=== PATIENT | female | born 1965 | race Caucasian/White ===

== ENCOUNTER 2016-09-22 17:19 | Emergency (ER) | payer OTHER ==
[2016-09-22 17:23] VITALS: BP 149/85; PULSE 114; TEMP 98.4; BMI 52.0
[2016-09-22 20:16] LABS: URINE APPEARANCE TURBID; URINE BILIRUBIN NEGATIVE (NEGATIVE); URINE COLOR YELLOW; URINE GLUCOSE (UA) 1+ (NEGATIVE); URINE KETONE NEGATIVE (NEGATIVE); URINE NITRITE NEGATIVE (NEGATIVE); URINE UROBILINOGEN NEGATIVE E.U./dl (0.2-1.0)
[2016-09-22 20:19] LABS: BASOPHIL 0.4 % (0-2.0); EOSINOPHIL 0.9 % (0-4.5); MCH 29.6 pg (25.7-33.7); MCHC 32.9 g/dl (32.0-36.0); MEAN CELL VOLUME 89.9 fl (80-96); MEAN PLT VOLUME 7.5 fl (7.5-11.1); NEUTROPHILS 73.6 % (42.8-82.8); PLATELET COUNT 253 K/MM3 (134-434); RDW 13.4 % (11.6-15.6); URINE BLOOD 2+ (NEGATIVE); URINE LEUK ESTERASE 3+ (NEGATIVE); URINE PROTEIN 2+ (NEGATIVE); WHITE BLOOD COUNT 11.3 K/mm3 (4.0-10.0)
[2016-09-22 20:21] LABS: URINE MUCUS FEW; URINE RBC 123 /hpf (0-3); URINE WBC 746 /hpf (3-5); YEAST FEW
[2016-09-22 20:40] LABS: ALBUMIN 3.1 g/dl (3.4-5.0); BILIRUBIN,TOTAL 0.4 mg/dL (0.2-1.0); CALCIUM 8.7 mg/dL (8.5-10.1); COCKROFT - GAULT 91.1285; CREATININE 1.6 mg/dL (0.55-1.02); TOT PROT 7.1 g/dl (6.4-8.2)
--- NOTE | 2016-09-22 21:59 | PDOC ---
History of Present Illness - General Chief Complaint: Pain Stated Complaint: STOMACH ACHE/BACK PAIN/CHILLS Time Seen by Provider: 09/22/16 19:19 History Source: Patient Exam Limitations: No Limitations - History of Present Illness Travel History: No Initial Comments: 09/22/16 21:56 51yo Female patient presents to ED c/o abd and back pain w/ chills that began 1 hour ago. Patient states she is currently being treated by her urologist for blood in urine. She was to have a CT-Scan w/ contrast this past week, but BUN/ Creat elevated, so her urologist cancelled study. Patient verbalize she has a Cystoscopy schedule for Friday. Patient denies any other complaints at this time. Spoke with Dr. Stubbs (Urology) today at [phone], who requested patient have a CT-Scan w/o contrast and call him back. Timing/Duration: reports: getting worse Quality: reports: moderate Abdominal Pain Onset Location: reports: generalized abdomen Pain Radiation: reports: back Activities at Onset: reports: none Treatment Prior to Arrive: worse with: analgesics, antacids, cold pack, heat, laxative, enema, other Aggravating Factors: worse with: None, Defecation, Eating, Emotional upset, Exertion, [place], Movement, Voiding, Change in position Alleviating Factors: worse with: None, Belching, Shallow Breathing, Defecation, Eating, Holding Breath, Passing Gas, Change in Position, Rest, Voiding, Vomiting Past History - Travel Traveled outside of the country in the last 30 days: No Close contact w/someone who was outside of country & ill: No - Past Medical History Allergies/Adverse Reactions: Allergies Allergy/AdvReac Type Severity Reaction Status Date / Time amoxicillin Allergy Rash Verified 09/22/16 17:24 erythromycin base Allergy Rash Verified 09/22/16 17:24 levofloxacin [From Levaquin] Allergy Hives Verified 09/22/16 17:25 Home Medications: Ambulatory Orders Cephalexin Monohydrate [Keflex -] 500 mg PO BID #20 capsule 09/22/16 Glipizide Xl [Glucotrol Xl -] 5 mg PO DAILY 09/22/16 Hydrocodone/Acetaminophen [Vicodin 5-300 mg Tablet] 1 each PO Q6H PRN 09/22/16 Insulin Aspart [Novolog] 100 unit SQ BID 09/22/16 Insulin Glargine,Hum.rec.anlog [Dorinda Mccollum] 72 unit SQ DAILY 09/22/16 Liraglutide [Victoza -] 1.8 mg SQ DAILY@0700 09/22/16 Losartan Potassium [Cozaar] 100 mg PO DAILY 09/22/16 Diabetes: Yes Kidney Stones: Yes Other medical history: SPINAL STENOSIS - Psycho/Social/Smoking Cessation Hx Anxiety: No Suicidal Ideation: No Smoking History: Never smoked Hx Alcohol Use: No Drug/Substance Use Hx: No Substance Use Type: None Abd/GI Specific PMHX - Complaint Specific PMHX Colitis: No Diverticulitis: No Gall Bladder Disease: No GERD: No Hepatitis: No Irritable Bowel Synd (IBS): No Pancreatitis: No GI Ulcer Disease: No Review of Systems - Review of Systems Able to Perform ROS?: Yes Is the patient limited Estonian proficient: No Constitutional: Yes: Chills. No: Fever Respiratory: No: Orthopnea, Shortness of Breath, Stridor, Wheezing, Hemoptysis Cardiac (ROS): No: Chest Pain, Lightheadedness, Palpitations, Syncope, Chest Tightness ABD/GI: Yes: Other (Generalized Abdominal Pain). No: Diarrhea, Nausea, Poor Appetite, Poor Fluid Intake, Rectal Bleeding, Vomiting : Yes: Burning, Dysuria. No: Discharge, Frequency, Flank Pain, Pain, Urgency Musculoskeletal: Yes: Back Pain Integumentary: No: Dryness, Erythema, Rash Neurological: No: Headache, Seizure, Tingling, Ataxia, Dizziness All Other Systems: Reviewed and Negative *Physical Exam - Vital Signs Last Vital Signs Temp Pulse Resp BP Pulse Ox 98.4 F 114 H 20 149/85 98 09/22/16 17:20 09/22/16 17:20 09/22/16 17:20 09/22/16 17:20 09/22/16 17:20 - Physical Exam General Appearance: Yes: Nourished, Appropriately Dressed. No: Apparent Distress, Mild Distress, Moderate Distress, Severe Distress Respiratory/Chest: positive: Lungs Clear, Normal Breath Sounds. negative: Respiratory Distress, Accessory Muscle Use, Labored Respiration, Rapid RR Cardiovascular: positive: Regular Rhythm, Regular Rate Gastrointestinal/Abdominal: positive: Normal Bowel Sounds, Soft, Distended ( Large Abd), Tenderness (Generalized Abdominal Pain). negative: Guarding, Rebound Musculoskeletal: positive: Normal Inspection. negative: CVA Tenderness Extremity: positive: Normal Capillary Refill, Normal Inspection, Normal Range of Motion Integumentary: positive: Normal Color, Dry, Warm Neurologic: positive: rn stars II-XII NML intact, Fully Oriented, Alert, Normal Mood/ Affect, Normal Response, Motor Strength 10/18 ED Treatment Course - LABORATORY CBC & Chemistry Diagram: 09/22/16 19:57 09/22/16 19:57 - ADDITIONAL ORDERS Additional order review: Laboratory Results 09/22/16 09/22/16 19:57 19:57 Sodium 136 Potassium 4.5 Chloride 102 Carbon Dioxide 22 Anion Gap 12 BUN 24 H Creatinine 1.6 H Creat Clearance w eGFR 33.72 Random Glucose 191 H Calcium 8.7 Total Bilirubin 0.4 AST 25 ALT 35 Alkaline Phosphatase 82 Total Protein 7.1 Albumin 3.1 L Urine Color Yellow Urine Appearance Turbid Urine pH 5.0 Ur Specific Freedom 1.020 Urine Protein 2+ H Urine Glucose (UA) 1+ H Urine Ketones Negative Urine Blood 2+ H Urine Nitrite Negative Urine Bilirubin Negative Urine Urobilinogen Negative Ur Leukocyte Esterase 3+ H Urine RBC 123 Urine WBC 746 Ur Epithelial Cells Many Urine Mucus Few Urine Yeast Few 09/22/16 19:57 RBC 4.46 MCV 89.9 MCHC 32.9 RDW 13.4 MPV 7.5 Neutrophils % 73.6 Lymphocytes % 17.3 Monocytes % 7.8 Eosinophils % 0.9 Basophils % 0.4 - RADIOLOGY Radiology Studies Ordered: Category Date Time Status ABDOMEN & PELVIS CT W/O CONTR [CT] Stat CT Scan 09/22/16 19:52 Taken *DC/Admit/Observation/Transfer Diagnosis at time of Disposition: UTI (urinary tract infection) Qualifiers: Urinary tract infection type: acute cystitis Hematuria presence: without hematuria Qualified Code(s): N30.00 - Acute cystitis without hematuria - Discharge Dispostion Disposition: HOME Condition at time of disposition: Stable Admit: No - Prescriptions Prescriptions: Cephalexin Monohydrate [Keflex -] 500 mg PO BID #20 capsule - Patient Instructions Printed Discharge Instructions: DI for Urinary Tract Infection (UTI) Additional Instructions: FOLLOW UP WITH DR. FARR AND DR. STUBBS. CALL TO SCHEDULE APPOINTMENT. TAKE MEDICATIONS PRESCRIBED. RETURN IF ANY CONCERNS FOR FURTHER EVALUATION. Print Language: LITHUANIAN
[2016-09-22] MEDS ORDERED: PHENAZOPYRIDINE HCL 100 MG TABLET (FP) PO ONE (22:56)
[2016-09-22] MEDS ORDERED: CEPHALEXIN MONOHYDRATE 500 MG CAPSULE (UD) PO ONE ×2 (22:56→22:57)
[2016-09-22] MEDS ORDERED: PHENAZOPYRIDINE HCL 100 MG TABLET (FP) ONE (22:59)
[2016-09-22] MEDS ORDERED: CEPHALEXIN MONOHYDRATE 250 MG CAPSULE (FP) ONE (23:00)
== END 2016-09-22 23:09 | disposition home or self-care (01) ==
LOC: JER 17:19
DX: N30.00 Acute cystitis without hematuria (principal)
CPT/HCPCS: 36415; 74176-TC; 80053; 81003; 81015; 85025; 99283-25

== ENCOUNTER 2017-01-13 05:10 | Day surgery (SDC) | payer OTHER ==
[2017-01-03 11:53] VITALS: BMI 52.4
[2017-01-13] MEDS ORDERED: MIDAZOLAM HCL 2 MG/2 ML SINGLE DOSE VIAL ONE ×3 (11:01→11:40)
[2017-01-13] MEDS ORDERED: ceFAZolin SODIUM 1 GM VIAL IVPB ONE (11:40)
[2017-01-13] MEDS ORDERED: ONDANSETRON 4 MG/2 ML VIAL IVPUSH PRN (12:20)
[2017-01-13] MEDS ORDERED: LACTATED RINGERS SOLUTION 1,000 ML IV SCH (12:30)
[2017-01-13 13:13] VITALS: TEMP 98.3
[2017-01-13] MEDS ORDERED: traMADol HCL 50 MG TABLET PO ONE (13:23)
[2017-01-13 14:52] VITALS: BP 117/70; PULSE 88
--- NOTE | 2017-01-13 15:32 | OP ---
Operative Note - Note: Operative Date: 01/13/17 Pre-Operative Diagnosis: left renal stone Operation: left eswl Findings: left one cm renal stone Post-Operative Diagnosis: Same as Pre-op Surgeon: Maged Walker Anesthesia: General
--- NOTE | 2017-01-14 08:52 | OP ---
DATE OF OPERATION: 01/13/2017 PREOPERATIVE DIAGNOSIS: Left midpole renal stone. POSTOPERATIVE DIAGNOSIS: Left midpole renal stone. PROCEDURE: Left extracorporeal shockwave lithotripsy. ATTENDING: Maged Grijalva MD ANESTHESIA: General. OPERATION: Patient was brought in the operating room and placed in the supine position on the operating room table. General anesthesia was administered. Ultrasonography and fluoroscopy identified a 10-mm left midpole stone; 3000 impulses at 18 joules of power was administered to the stone. Fragmentation was noted. However, due to the body habitus it was difficult to follow the stone breakage. The patient will be followed conservatively. DISPOSITION: Patient was taken to the recovery room. Nathan [id number]
== END 2017-01-13 14:10 | disposition home or self-care (01) ==
LOC: JASU-SURG 05:10
PROVIDERS: ATTEND Urology
PROC: 0TF4XZZ Fragmentation in Left Kidney Pelvis, External Approach (ICD-10-PCS; principal; 2017-01-13 11:15)
DX: N20.0 Calculus of kidney (principal)
CPT/HCPCS: 84703; 94760

== ENCOUNTER 2017-06-27 06:22 | Day surgery (SDC) | payer OTHER ==
[2017-06-26 15:42] VITALS: BMI 52.4
[2017-06-27] MEDS ORDERED: ACETAMINOPHEN 1000 MG/100 ML VIAL (NON FORMULARY) IVPB ONE (07:49)
--- NOTE | 2017-06-27 07:49 | HP ---
History & Physical Update - History History: No Change - Physical Physical: No Change - Assessment Assessment: No Change - Plan Plan: No Change
[2017-06-27] MEDS ORDERED: IBUPROFEN 800 MG/8 ML IJ IVPB SCH (08:00)
[2017-06-27] MEDS ORDERED: DEXTROSE 5%-0.45% SALINE 1,000 ML IV SCH (08:00)
[2017-06-27] MEDS ORDERED: CLINDAMYCIN 600 MG PREMIX BAG IVPB ONE ×2 (08:25→08:30)
[2017-06-27] MEDS ORDERED: ONDANSETRON 4 MG/2 ML VIAL IVPUSH PRN (09:15)
[2017-06-27] MEDS ORDERED: LACTATED RINGERS SOLUTION 1,000 ML IV SCH (09:15)
[2017-06-27 12:35] VITALS: TEMP 97.9
--- NOTE | 2017-06-27 13:43 | OP ---
DATE OF OPERATION: 06/27/2017 PREOPERATIVE DIAGNOSIS: Left renal calculus and interstitial cystitis. POSTOPERATIVE DIAGNOSIS: Left renal calculus and interstitial cystitis. PROCEDURE: Cystoscopy, left ureteroscopic laser lithotripsy, left retrograde pyelogram, and left ureteral stent placement. ANESTHESIA: Spinal. ANESTHESIOLOGIST: Margareth Dupree MD FINDINGS: Stones in the mid pole calyx on the left side and bladder findings consistent with interstitial cystitis. DRAIN: A 26 x 6 double-J ureteral stent on the left, and a Hunter catheter 16-Anguillan. ESTIMATED BLOOD LOSS: Minimal. PREOPERATIVE INDICATIONS: The patient is 52-year-old female who has chronic and recurrent nephrolithiasis. She currently has a 1.3-cm stone on her left side with occasional renal colic. She also suffers from interstitial cystitis. DESCRIPTION OF PROCEDURE: The patient was brought to the OR, placed on the table in the supine position. The groin was prepped and draped sterilely. Time-out was performed. Cystoscopy was performed. The urethra appeared to be normal. The bladder had chronic inflammation throughout consistent with her history of interstitial cystitis. No tumors or stones were seen in the bladder. The left ureteral orifice was visualized, and a wire was passed up into the left kidney with fluoroscopic guidance. A 10-Anguillan dual-lumen catheter was used to dilate the ureteral orifice, and a retrograde pyelogram was performed. The pyelogram appeared to be grossly normal. A 2nd wire was passed up, and the catheter was removed. A flexible ureteroscope was passed over the wire under fluoroscopic guidance up into the left kidney. That wire was removed. Examination of the all the calyces was done with the scope. There was a singular stone seen in the upper pole calyx. This was broken up with a Holmium Laser Fiber. There was the larger stone as seen on ultrasound in the mid pole calyx. Using the Holmium Laser Fiber, the stone was broken up into small pieces of sand. No other stones remained of any significant size. The other calyces were clear. The renal pelvis was clear, and the ureter itself was also examined, and no stones were seen throughout the ureter. A 6 x 26 double-J ureteral stent was placed over the remaining wire, one loop was seen in the kidney and one loop in the bladder. A Hunter catheter was left in place, as well. The patient was woken up. Nathan [id number]
[2017-06-27] MEDS ORDERED: oxyCODONE HCL 5 MG TABLET ONE ×2 (14:45→17:01)
[2017-06-27] MEDS ORDERED: oxyCODONE HCL 5 MG TABLET PO ONE ×2 (14:52→17:00)
[2017-06-27] MEDS ORDERED: oxyCODONE HCL 5 MG TABLET PO PRN (16:55)
[2017-06-27 18:07] VITALS: BP 146/60; PULSE 90
== END 2017-06-27 18:00 | disposition home or self-care (01) ==
LOC: JASU-SURG 06:22
PROVIDERS: ATTEND Urology
PROC: BT1FYZZ Fluoroscopy of Left Kidney, Ureter and Bladder using Other Contrast (ICD-10-PCS; 2017-06-27)
PROC: 0TF48ZZ Fragmentation in Left Kidney Pelvis, Via Natural or Artificial Opening Endoscopic (ICD-10-PCS; principal; 2017-06-27 07:30)
PROC: 0TF78ZZ Fragmentation in Left Ureter, Via Natural or Artificial Opening Endoscopic (ICD-10-PCS; 2017-06-27 07:30)
PROC: 0T778DZ Dilation of Left Ureter with Intraluminal Device, Via Natural or Artificial Opening Endoscopic (ICD-10-PCS; 2017-06-27 07:30)
DX: N20.0 Calculus of kidney (principal); N30.10 Interstitial cystitis (chronic) without hematuria
CPT/HCPCS: 76000-TC; 82962; 94760

== ENCOUNTER 2017-08-06 08:00 | Day surgery (SDC) | payer OTHER ==
[2017-08-05 12:30] VITALS: BMI 52.0
[2017-08-06] MEDS ORDERED: DEXTROSE 5%-0.45% SALINE 1,000 ML IV SCH (08:15)
[2017-08-06] MEDS ORDERED: IBUPROFEN 800 MG/8 ML IJ IVPB SCH (08:15)
[2017-08-06] MEDS ORDERED: ACETAMINOPHEN 1000 MG/100 ML VIAL (NON FORMULARY) IVPB ONE (08:16)
[2017-08-06] MEDS ORDERED: MIDAZOLAM HCL 2 MG/2 ML SINGLE DOSE VIAL ONE ×3 (10:33→11:49)
[2017-08-06] MEDS ORDERED: CLINDAMYCIN 900 MG PREMIX BAG IVPB ONE (10:40)
[2017-08-06] MEDS ORDERED: LIDOCAINE HCL 1%, 10 MG/ML (20ML VIAL) INF ONE (10:56)
[2017-08-06] MEDS ORDERED: BACITRACIN 50,000 UNITS VIAL NR ONE (11:44)
[2017-08-06] MEDS ORDERED: ACETAMINOPHEN INJECTION 100 ML IVPB ONE (12:04)
[2017-08-06] MEDS ORDERED: oxyCODONE HCL 5 MG TABLET PO PRN (12:11)
[2017-08-06] MEDS ORDERED: ONDANSETRON 4 MG/2 ML VIAL IVPUSH PRN (12:11)
[2017-08-06] MEDS ORDERED: PROMETHAZINE HCL 25 MG/1 ML VIAL IVPUSH PRN (12:11)
[2017-08-06] MEDS ORDERED: KETOROLAC TROMETHAMINE 30 MG/1 ML VIAL IVPUSH ONE (12:12)
[2017-08-06] MEDS ORDERED: LACTATED RINGERS SOLUTION 1,000 ML IV SCH (12:15)
[2017-08-06 12:49] VITALS: TEMP 98.3
[2017-08-06] MEDS ORDERED: oxyCODONE HCL 5 MG TABLET PO ONE (14:00)
[2017-08-06 17:32] VITALS: BP 130/63; PULSE 90
--- NOTE | 2017-08-12 14:10 | OP ---
DATE OF OPERATION: 08/06/2017 PREOPERATIVE DIAGNOSIS: Urinary urge incontinence. POSTOPERATIVE DIAGNOSIS: Urinary urge incontinence. PROCEDURE: InterStim full implant, lead and battery. ANESTHESIA: IV sedation with local. SURGEON: Scott Max MD ESTIMATED BLOOD LOSS: Minimal. FINDINGS: S3 stimulation at low amplitude. PREOPERATIVE INDICATIONS: The patient has severe urinary urge incontinence, has been resistant to medical therapy. She had a peripheral nerve evaluation test which displayed a greater than 50% improvement in her urination. She comes to the OR for InterStim implant. DESCRIPTION OF OPERATION: The patient is brought to the OR, placed on the table in the prone position. All pressure points were protected. Patient given IV sedation and IV antibiotics. The back was prepped and draped sterilely. Timeout was performed. Fluoroscopy was used to locate the S3 foramina bilaterally. Finder needles were placed down into the S3 foramen bilaterally and were stimulated. S3 response including anal johnson, toe deflection, and vaginal sensation were noted at low amplitude on the right side. No calf rotation was seen. A quadripolar lead was passed under fluoroscopic guidance using Seldinger technique through the area of the needle. This was then tunneled out to the right side of the right buttock where a pocket was made. After lidocaine was injected into the skin, incision was made to accommodate a battery. The tunneled lead was then connected to the battery, and the battery was placed in the pocket. Impedances were checked and noted to be normal. Fluoroscopic imaging of the lead was desirable. Wounds were closed in 2 layers and dressed. The patient was woken up. Nathan [id number]
== END 2017-08-06 14:30 | disposition home or self-care (01) ==
LOC: JASU-SURG 08:00
PROVIDERS: ATTEND Urology
PROC: 01HY0MZ Insertion of Neurostimulator Lead into Peripheral Nerve, Open Approach (ICD-10-PCS; 2017-08-06)
PROC: 0JH70BZ Insertion of Single Array Stimulator Generator into Back Subcutaneous Tissue and Fascia, Open Approach (ICD-10-PCS; principal; 2017-08-06 09:30)
DX: N39.41 Urge incontinence (principal); R35.0 Frequency of micturition
CPT/HCPCS: 64581; 64590; L8680; L8686; 76000-TC-FY; 82962; 94760; J0131

== ENCOUNTER 2018-01-02 06:09 | Day surgery (SDC) | payer OTHER ==
[2018-01-01 14:34] VITALS: BMI 53.2
[2018-01-02] MEDS ORDERED: BUPIVACAINE HCL/PF 0.75% 10 ML VIAL ONE (07:36)
[2018-01-02] MEDS ORDERED: BUPIVACAINE 0.75% IN DEXTROSE/PF 2ML AMPULE NR ONE (07:38)
[2018-01-02] MEDS ORDERED: IBUPROFEN 800 MG/8 ML IJ IVPB PRN (07:40)
[2018-01-02] MEDS ORDERED: ACETAMINOPHEN 1000 MG/100 ML VIAL (NON FORMULARY) IVPB ONE (07:42)
[2018-01-02] MEDS ORDERED: GENTAMICIN SO4 80 MG/2 ML VIAL ONE (07:43)
[2018-01-02] MEDS ORDERED: DEXTROSE 5%-0.45% SALINE 1,000 ML IV SCH (07:45)
[2018-01-02] MEDS ORDERED: MIDAZOLAM HCL 2 MG/2 ML SINGLE DOSE VIAL ONE ×5 (07:47→08:48)
[2018-01-02] MEDS ORDERED: GENTAMICIN SO4 80 MG/2 ML VIAL IVPB ONE (07:56)
[2018-01-02] MEDS ORDERED: ePHEDrine SULFATE 50 MG/1 ML AMPULE ONE (08:04)
[2018-01-02] MEDS ORDERED: PROPOFOL 20 ML ONE ×2 (08:48)
[2018-01-02] MEDS ORDERED: ONDANSETRON 4 MG/2 ML VIAL IVPUSH PRN (09:16)
[2018-01-02] MEDS ORDERED: PROMETHAZINE HCL 25 MG/1 ML VIAL IVPUSH PRN (09:16)
[2018-01-02] MEDS ORDERED: oxyCODONE HCL 5 MG TABLET PO PRN (09:16)
[2018-01-02] MEDS ORDERED: ACETAMINOPHEN INJECTION 100 ML IVPB ONE (09:46)
[2018-01-02] MEDS ORDERED: oxyCODONE HCL 5 MG TABLET PO ONE ×2 (14:35→15:35)
[2018-01-02] MEDS ORDERED: oxyCODONE HCL 5 MG TABLET ONE ×2 (14:39→15:32)
[2018-01-02 15:16] VITALS: TEMP 97.8
[2018-01-02 17:20] VITALS: BP 147/80; PULSE 87
--- NOTE | 2018-01-09 09:34 | OP ---
DATE OF OPERATION: 01/02/2018 PREOPERATIVE DIAGNOSIS: Left renal calculus. POSTOPERATIVE DIAGNOSIS: Left renal calculus. PROCEDURE: Cystoscopy, left ureteroscopic laser lithotripsy and stent placement. SURGEON: Scott Max MD ESTIMATED BLOOD LOSS: Minimal. FINDINGS: Stone in the left kidney. DRAINS: A 24 x 6 double-J ureteral stent. PREOPERATIVE INDICATIONS: The patient has recurrent stone disease. She comes to the OR today for treatment of a 7-mm stone in the midpole of her left kidney. DESCRIPTION OF PROCEDURE: The patient is brought to the OR, placed on the table in supine position, given general anesthesia and IV antibiotic and placed in the modified lithotomy position. The groin was prepped and draped sterilely. Cystoscopy was performed. The bladder appeared to be consistent with her history of interstitial cystitis with some hyperemia throughout. Both UOs were visualized. No tumors were seen. A wire was passed up into the left kidney under fluoroscopic guidance. A dual-lumen catheter was placed and a second wire was placed into the kidney as well. A flexible ureteroscope was then passed over one of the wires into the left kidney. All calices were examined and the stone was seen in the midpole. Using holmium laser fiber, the stone was broken up to small pieces and dust. No stones of significant size were visualized at the end of the case. The scope was then removed. The ureter was examined along the way and no stones were seen in the ureter. Over the wire a 6 x 24 double-J ureteral stent was placed under fluoroscopic guidance, 1 loop in the kidney and 1 loop in the bladder. The bladder was emptied. The patient was woken up, and a Hunter catheter was then placed at patient's request. SCOTT MAX M.D. [id number]
== END 2018-01-02 16:15 | disposition home or self-care (01) ==
LOC: JASU-SURG 06:09
PROVIDERS: ATTEND Urology
PROC: 0TF78ZZ Fragmentation in Left Ureter, Via Natural or Artificial Opening Endoscopic (ICD-10-PCS; principal; 2018-01-02 07:30)
PROC: 0T778DZ Dilation of Left Ureter with Intraluminal Device, Via Natural or Artificial Opening Endoscopic (ICD-10-PCS; 2018-01-02 07:30)
DX: N20.0 Calculus of kidney (principal)
CPT/HCPCS: 76000-TC-FY; 82962; 94760; J0131

== ENCOUNTER 2019-07-24 11:51 | Emergency (ER) | payer OTHER ==
[2019-07-24 12:07] VITALS: BMI 53.1
[2019-07-24] MEDS ORDERED: CLINDAMYCIN 600MG PREMIX IVPB 600 MG/50 ML BAG IVPB ONE ×2 (12:46→13:42)
[2019-07-24] MEDS ORDERED: ACETAMINOPHEN 1000 MG/100 ML VIAL (NON FORMULARY) IVPB ONE (12:46)
[2019-07-24] MEDS ORDERED: ACETAMINOPHEN INJECTION 100 ML IVPB ONE (13:43)
--- NOTE | 2019-07-24 13:58 | PDOC ---
History of Present Illness - General Chief Complaint: Wound Stated Complaint: FEVER Time Seen by Provider: 07/24/19 12:20 History Source: Patient Exam Limitations: No Limitations - History of Present Illness Initial Comments: 07/24/19 13:51 54-year-old female with diabetes and obesity left lower extremity redness. 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 Patient states also has cats at home and unsure if they scratched her. Patient denies calf tenderness decrease sensation to the toes, chest pain, shortness of breath, or headache. Patient does state felt warm but did not take her temperature. patient also states did not take her insulin for the past few days since she checked it and it was only 95 a few days ago Is this a multiple visit Asthma Patient?: No Timing/Duration: getting worse Severity: moderate Associated Symptoms: reports: fever/chills Past History - Travel Traveled outside of the country in the last 30 days: No Close contact w/someone who was outside of country & ill: No - Past Medical History Allergies/Adverse Reactions: Allergies Allergy/AdvReac Type Severity Reaction Status Date / Time amoxicillin Allergy Rash Verified 07/24/19 12:01 erythromycin base Allergy Rash Verified 07/24/19 12:01 levofloxacin [From Levaquin] Allergy Hives Verified 07/24/19 12:01 Home Medications: Ambulatory Orders Insulin Aspart [Novolog Flexpen] unit SQ BID 09/22/16 Liraglutide [Victoza -] 1.8 mg SQ DAILY@0700 09/22/16 Pentosan Polysulfate Sodium [Elmiron] 100 mg PO TID 01/03/17 Acetaminophen [Tylenol] 650 mg PO PRN PRN 06/26/17 Amitriptyline HCl [Elavil -] 20 mg PO ACDIN 06/26/17 Insulin Glargine,Hum.rec.anlog [Basaglar Kwikpen U-100] unit SQ ACDIN 06/26/17 Losartan/Hydrochlorothiazide [Losartan-Hctz 100-25 mg Tab] 1 each PO ACDIN 06/26 Glipizide Xl [Glucotrol Xl -] 5 mg PO ACDIN 01/01/18 Clindamycin [Cleocin -] 300 mg PO Q6HPO #28 capsule 07/24/19 Hydrocodone/Acetaminophen [Hydrocodone-Acetamin 5-325 mg] 1 each PO QID #10 tablet [facility] 4 07/24/19 Hydrocodone/Acetaminophen [Vicodin Es 7.5-300 mg Tablet] 1 each PO QID #10 tablet [facility] 4 07/24/19 Anemia: No Asthma: Yes (SEASONAL) Cancer: No Cardiac Disorders: No CVA: No COPD: No CHF: No Dementia: No Diabetes: Yes (IDDM) GI Disorders: No Disorders: Yes (STONES, implanted device to "calm" the bladder) HTN: No Hypercholesterolemia: No Kidney Stones: Yes Liver Disease: No Seizures: No Thyroid Disease: No - Surgical History Orthopedic Surgery: Yes (KNEE SX FILI (arthroscopy)) - Psycho Social/Smoking Cessation Hx Smoking History: Never smoked Have you smoked in the past 12 months: No Hx Alcohol Use: No Drug/Substance Use Hx: No Substance Use Type: None Hx Substance Use Treatment: No Patient Lives Alone: Yes Lives with/in: lives alone Review of Systems - Review of Systems Able to Perform ROS?: Yes Constitutional: Yes: Chills, Fever HEENTM: No: Symptoms Reported Respiratory: No: Symptoms reported Cardiac (ROS): No: Symptoms Reported ABD/GI: No: Symptoms Reported : No: Symptoms Reported Musculoskeletal: Yes: Muscle Pain (Left foot left calf) Integumentary: Yes: Erythema Neurological: No: Symptoms reported Hematologic/Lymphatic: No: Symptoms Reported *Physical Exam - Vital Signs Last Vital Signs Temp Pulse Resp BP Pulse Ox 98.4 F 93 H 20 165/51 L 99 07/24/19 12:05 07/24/19 12:05 07/24/19 12:07/24/19 12:07/24/19 12:05 - Physical Exam General Appearance: Yes: Appropriately Dressed, Obese. No: Apparent Distress HEENT: positive: Pharynx Normal. negative: Pale Conjunctivae Neck: positive: Normal Thyroid Respiratory/Chest: positive: Lungs Clear, Normal Breath Sounds. negative: Respiratory Distress, Accessory Muscle Use Cardiovascular: positive: Regular Rhythm, Regular Rate. negative: Murmur Vascular Pulses: Dorsalis-Pedis (R): 2+, Doralis-Pedis (L): 2+ Gastrointestinal/Abdominal: positive: Soft. negative: Tenderness Extremity: positive: Swelling, Erythema, Other (No visible open wound/lesion). negative: Calf Tenderness Integumentary: positive: Other (3+ nonpitting edema bilaterally left greater than right. noted erythema extending to the mid jean baptiste.) Neurologic: positive: Motor Strength 5/5 (Ambulatory) ED Treatment Course - LABORATORY CBC & Chemistry Diagram: 07/24/19 14:20 07/24/19 14:20 - RADIOLOGY Radiology Studies Ordered: Category Date Time Status DUPLEX VASCUL US-1 LEG [US] Stat Ultrasound 07/24/19 12:47 Ordered Medical Decision Making - Medical Decision Making 07/24/19 13:54 Chief complaint: Worsening redness swelling to the left lower extremity for the past few days. Patient is obese history of diabetes and does have cats at home. Patient took nothing for the above but states has not taken her insulin for the past few days since her glucose was 95 a few days ago. Exam: Patient with erythema warm 3+ nonpitting edema to the left lower extremity 2+ pulses negative Homans. Plan: Area circled with permanent marker. Patient ordered for septic work-up including duplex of the lower extremity and clindamycin IV ordered 07/24/19 15:55 Although the duplex was limited and unable to visualize all of the veins, the ones noted are negative for DVT. Discharge - Discharge Information Problems reviewed: Yes Clinical Impression/Diagnosis: Cellulitis Qualifiers: Site of cellulitis: extremity Site of cellulitis of extremity: lower extremity Laterality: left Qualified Code(s): L03.116 - Cellulitis of left lower limb Condition: Stable Disposition: HOME - Additional Discharge Information Prescriptions: Clindamycin [Cleocin -] 300 mg PO Q6HPO #28 capsule Hydrocodone/Acetaminophen [Vicodin Es 7.5-300 mg Tablet] 1 each PO QID #10 tablet [facility] 4 Hydrocodone/Acetaminophen [Hydrocodone-Acetamin 5-325 mg] 1 each PO QID #10 tablet [facility] 4 - Follow up/Referral Referrals: Oneida Banegas MD [Primary Care Provider] - - Patient Discharge Instructions Patient Printed Discharge Instructions: DI for Cellulitis -- Adult Additional Instructions: Your Discharge Instructions: You must call primary care physician within 24 hours to arrange follow-up. Return to the Emergency Department with any new, persistent or worsening symptoms, for fever, chills, SOB, dizziness or any other concerning changes that may occur. take the anitbiotics as prescribed. Warm compresses to the area , elevation. Follow-up in the ER in 48 hours if your primary care doctor is unavailable. - Post Discharge Activity Work/Back to School Note: Back to Work
[2019-07-24 15:52] LABS: BASO % 0.5 % (0-2.0); EOS % 1.3 % (0-4.5); HEMATOCRIT 35.4 % (32.4-45.2); HEMOGLOBIN 11.7 GM/dL (10.7-15.3); LYMPH % 19.4 % (8-40); MCH 31.7 pg (25.7-33.7); MCHC 33.1 g/dl (32.0-36.0); MEAN CELL VOLUME 95.9 fl (80-96); MEAN PLT VOLUME 8.5 fl (7.5-11.1); MONO % 13.5 % (3.8-10.2); NEUT % 65.3 % (42.8-82.8); PLATELET COUNT 163 K/MM3 (134-434); RBC 3.69 M/mm3 (3.60-5.2); RDW 13.4 % (11.6-15.6); WHITE BLOOD COUNT 6.7 K/mm3 (4.0-10.0)
[2019-07-24 15:54] LABS: VENOUS PC02 45.7 mmHg (38-52); VENOUS PH 7.33 (7.31-7.41); VENOUS PO2 54.5 mmHg (28-48)
[2019-07-24 16:05] LABS: ALBUMIN 2.8 g/dl (3.4-5.0); BILIRUBIN,TOTAL 0.5 mg/dL (0.2-1); BLOOD UREA NITROGEN 41.6 mg/dL (7-18); CALCIUM 8.7 mg/dL (8.5-10.1); CREATININE 1.9 mg/dL (0.55-1.3); POTASSIUM 4.5 mmol/L (3.5-5.1); TOT PROT 7.2 g/dl (6.4-8.2)
[2019-07-24 17:43] VITALS: BP 127/46; PULSE 72; TEMP 97.5
--- NOTE | 2019-07-24 17:43 | PDOC ---
*Physical Exam - Vital Signs Last Vital Signs Temp Pulse Resp BP Pulse Ox 98.4 F 93 H 20 165/51 L 99 07/24/19 12:05 07/24/19 12:05 07/24/19 12:05 07/24/19 12:05 07/24/19 12:05 - Physical Exam 07/24/19 17:38 Endorsed to me to follow labs and disposition with possible admission if there were signs of sepsis. Patient seen and evaluated she currently has no pain. Labs reviewed no acute findings We will discharge patient with instruction to follow-up with primary care doctor on Friday Clindamycin to [facility] Selected Entries 07/24/19 16:01 Temperature 97.5 F L Pulse Rate [ 72 Apical] Respiratory 18 Rate Blood Pressure 127/46 L [Right Arm] O2 Sat by Pulse 100 Oximetry (%) Your Discharge Instructions: You must call primary care physician within 24 hours to arrange follow-up. Return to the Emergency Department with any new, persistent or worsening symptoms, for fever, chills, SOB, dizziness or any other concerning changes that may occur. ED Treatment Course - LABORATORY CBC & Chemistry Diagram: 07/24/19 14:20 07/24/19 14:20 - ADDITIONAL ORDERS Additional order review: Laboratory Results 07/24/19 07/24/19 07/24/19 14:20 14:20 14:20 VBG pH 7.33 POC VBG pCO2 45.7 POC VBG pO2 54.5 H VBG HCO3 23.5 VBG O2 Sat ([place]) 85.3 H VBG Base Excess -1.6 Sodium 137 Potassium 4.5 Chloride 106 Carbon Dioxide 24 Anion Gap 6 L BUN 41.6 H Creatinine 1.9 H Est GFR (CKD-EPI)AfAm 33.57 Est GFR (CKD-EPI)NonAf 28.96 Random Glucose 170 H Lactic Acid 1.4 Calcium 8.7 Total Bilirubin 0.5 AST 41 H ALT 30 Alkaline Phosphatase 85 Total Protein 7.2 Albumin 2.8 L 07/24/19 14:20 RBC 3.69 MCV 95.9 MCHC 33.1 RDW 13.4 MPV 8.5 D Neutrophils % 65.3 Lymphocytes % 19.4 Monocytes % 13.5 H Eosinophils % 1.3 Basophils % 0.5 - Medications Given in the ED: ED Medications Discontinued Medications Generic Name Dose Route Start Last Admin Trade Name Freq PRN Reason Stop Dose Admin Acetaminophen 1,000 mg 07/24/19 12:46 07/24/19 15:00 Ofirmev Injection - IVPB 07/24/19 12:47 1,000 mg ONCE ONE Administration Clindamycin Phosphate 600 mg in 50 mls @ 100 mls/hr 07/24/19 12:46 07/24/19 14:49 Cleocin 600 Mg Premix Ivpb - IVPB 07/24/19 13:15 100 mls/hr ONCE ONE Administration Protocol Medical Decision Making - Medical Decision Making 07/24/19 17:38 Endorsed to me to follow labs and disposition with possible admission if there were signs of sepsis. Patient seen and evaluated she currently has no pain. Labs reviewed no acute findings Lactic is 1.4, with a normal white count Patient has remained afebrile since being in the emergency room We will discharge patient with instruction to follow-up with primary care doctor on Friday or return to the emergency room in 48 hours for wound check. Clindamycin and Vicodin to [facility] Selected Entries 07/24/19 16:01 Temperature 97.5 F L Pulse Rate [ 72 Apical] Respiratory 18 Rate Blood Pressure 127/46 L [Right Arm] O2 Sat by Pulse 100 Oximetry (%) I discussed the physical exam findings, ancillary test results and final diagnoses with the patient. I answered all of the patient's questions. The patient was satisfied with the care received and felt comfortable with the discharge plan and treatment plan. The Patient agrees to follow up with the primary care physician within 24-72 hours. Discharge - Discharge Information Problems reviewed: Yes Clinical Impression/Diagnosis: Cellulitis Qualifiers: Site of cellulitis: extremity Site of cellulitis of extremity: lower extremity Laterality: left Qualified Code(s): L03.116 - Cellulitis of left lower limb Condition: Stable Disposition: HOME - Additional Discharge Information Prescriptions: Clindamycin [Cleocin -] 300 mg PO Q6HPO #28 capsule Hydrocodone/Acetaminophen [Vicodin Es 7.5-300 mg Tablet] 1 each PO QID #10 tablet MDD 4 Hydrocodone/Acetaminophen [Hydrocodone-Acetamin 5-325 mg] 1 each PO QID #10 tablet MDD 4 - Follow up/Referral Referrals: Oneida Banegas MD [Primary Care Provider] - - Patient Discharge Instructions Patient Printed Discharge Instructions: DI for Cellulitis -- Adult Additional Instructions: Your Discharge Instructions: You must call primary care physician within 24 hours to arrange follow-up. Return to the Emergency Department with any new, persistent or worsening symptoms, for fever, chills, SOB, dizziness or any other concerning changes that may occur. take the anitbiotics as prescribed. Warm compresses to the area , elevation. Follow-up in the ER in 48 hours if your primary care doctor is unavailable. - Post Discharge Activity Work/Back to School Note: Back to Work
== END 2019-07-24 18:42 | disposition home or self-care (01) ==
LOC: JER 11:51
PROC: 3E03329 Introduction of Other Anti-infective into Peripheral Vein, Percutaneous Approach (ICD-10-PCS; principal; 2019-07-24)
PROC: 3E033NZ Introduction of Analgesics, Hypnotics, Sedatives into Peripheral Vein, Percutaneous Approach (ICD-10-PCS; 2019-07-24)
DX: L03.116 Cellulitis of left lower limb (principal); E11.9 Type 2 diabetes mellitus without complications; Z79.84 Long term (current) use of oral hypoglycemic drugs; Z87.448 Personal history of other diseases of urinary system; Z96.0 Presence of urogenital implants; Z87.09 Personal history of other diseases of the respiratory system; E66.01 Morbid (severe) obesity due to excess calories; Z68.43 Body mass index [BMI] 50.0-59.9, adult
CPT/HCPCS: 36415; 80053; 82803; 82962; 83605; 85025; 93971-TC; 99283-25; J0131

== ENCOUNTER 2023-01-31 23:26 | Inpatient (IN) | payer OTHER ==
[2023-02-01] MEDS ORDERED: ACETAMINOPHEN 1000 MG/100 ML BAG IVPB ONE (01:32)
[2023-02-01 02:23] LABS: HEMOGLOBIN 12.3 GM/dL (10.7-15.3); MCH 30.9 pg (25.7-33.7); MCHC 33.2 g/dl (32.0-36.0); MEAN CELL VOLUME 93.2 fl (80-96); MEAN PLT VOLUME 8.9 fl (7.5-11.1); PLATELET COUNT 237 10^3/uL (134-434); RBC 3.97 M/mm3 (3.60-5.2); RDW 14.3 % (11.6-15.6)
[2023-02-01 02:29] LABS: WHITE BLOOD COUNT 38.3 K/mm3 (4.0-10.0)
[2023-02-01] MEDS ORDERED: VANCOMYCIN 1,000 MG in DEXTROSE 5%-WATER - 250 ML IVPB ONE (02:30)
[2023-02-01] MEDS ORDERED: MEROPENEM 1 GM in DEXTROSE 5%-WATER 100 ML IVPB ONE (02:31)
[2023-02-01 02:39] LABS: VENOUS BASE EXCESS -13.8 mmol/L (-2-2); VENOUS O2 SATURATION 75.3 % (70-80); VENOUS PCO2 27.1 mmHg (38-52); VENOUS PH 7.254 (7.310-7.410)
[2023-02-01 02:51] LABS: INR 1.33 (0.83-1.09); PROTHROMBIN TIME (PATIENT) 15.4 SEC (9.7-13.0)
[2023-02-01 02:53] LABS: ACTIVATED PTT 25.2 SECONDS (25.2-36.5)
[2023-02-01 02:59] LABS: POTASSIUM 4.8 mmol/L (3.5-5.1)
[2023-02-01 03:01] LABS: CALCIUM 8.6 mg/dL (8.5-10.1)
[2023-02-01 03:02] LABS: ALBUMIN 2.1 g/dl (3.4-5.0); BLOOD UREA NITROGEN 87.3 mg/dL (7-18)
[2023-02-01 03:05] LABS: CREATININE 6.7 mg/dL (0.55-1.3)
[2023-02-01 03:06] LABS: BILIRUBIN,TOTAL 2.9 mg/dL (0.2-1)
[2023-02-01] MEDS ORDERED: MEROPENEM 1 GM VIAL (RESTRICTED TO ID) IVPB ONE (03:11)
[2023-02-01] MEDS ORDERED: LACTATED RINGERS SOLUTION 1,000 ML/1,000 ML INFUS.BAG IV STA (03:24)
[2023-02-01] MEDS ORDERED: VANCOMYCIN 1 GRAM (PRE-DOCKED) 1,000 MG/250 ML BAG IVPB ONE (04:14)
[2023-02-01] MEDS ORDERED: NOREPINEPHRINE BITARTRATE 4,000 MCG in DEXTROSE 5%-WATER - 496 ML IV SCH (04:15)
[2023-02-01 04:33] LABS: EPI CELLS >36 /uL (0-25.1); HYALINE CASTS 14 /uL (0-3.1); URINE APPEARANCE CLOUDY; URINE BACTERIA 9 /uL (0-1359); URINE BILIRUBIN 2+ (NEGATIVE); URINE COLOR DK YELLOW; URINE GLUCOSE (UA) NEGATIVE (NEGATIVE); URINE KETONE TRACE (NEGATIVE); URINE LEUK ESTERASE TRACE (NEGATIVE); URINE NITRITE NEGATIVE (NEGATIVE); URINE PROTEIN 3+ (NEGATIVE); URINE RBC 17 /uL (0-23.9); URINE WBC 77 /uL (0-25.8)
[2023-02-01 07:16] LABS: ARTERIAL BLD GAS O2 SATURATION 96.2 % (95-98); ARTERIAL BLOOD GAS BASE EXCESS -11.5 mmol/L (-2-2); ARTERIAL BLOOD GAS PO2 91.6 mmHg (80-100)
[2023-02-01 07:21] LABS: ALLENS TEST POSITIVE
[2023-02-01 07:42] LABS: HEMATOCRIT 34.7 % (32.4-45.2); HEMOGLOBIN 11.1 GM/dL (10.7-15.3); MCH 30.6 pg (25.7-33.7); MEAN CELL VOLUME 95.6 fl (80-96); MEAN PLT VOLUME 9.2 fl (7.5-11.1); PLATELET COUNT 206 10^3/uL (134-434); RBC 3.63 M/mm3 (3.60-5.2); RDW 14.2 % (11.6-15.6)
[2023-02-01 07:51] LABS: INR 1.34 (0.83-1.09); PROTHROMBIN TIME (PATIENT) 15.5 SEC (9.7-13.0); WHITE BLOOD COUNT 40.2 K/mm3 (4.0-10.0)
[2023-02-01 07:54] LABS: ACTIVATED PTT 27.5 SECONDS (25.2-36.5)
[2023-02-01] MEDS ORDERED: SODIUM CHLORIDE 1,000 ML IV STA (07:58)
[2023-02-01] MEDS ORDERED: ACETAMINOPHEN 1000 MG/100 ML BAG IVPB STA (08:17)
[2023-02-01] MEDS ORDERED: HYDROmorphone HCl 2 MG/ML VIAL IVPUSH STA (08:17)
[2023-02-01 08:20] LABS: CALCIUM 8.2 mg/dL (8.5-10.1)
[2023-02-01 08:21] LABS: ALBUMIN 1.9 g/dl (3.4-5.0); BLOOD UREA NITROGEN 85.3 mg/dL (7-18); MAGNESIUM 1.6 mg/dL (1.8-2.4)
[2023-02-01 08:23] LABS: BILIRUBIN,DIRECT 2.7 mg/dL (0.0-0.2)
[2023-02-01 08:24] LABS: CREATININE 6.6 mg/dL (0.55-1.3); PHOSPHOROUS 4.6 mg/dL (2.5-4.9)
[2023-02-01 08:25] LABS: TOT PROT 5.4 g/dl (6.4-8.2)
[2023-02-01 08:29] LABS: LACTIC ACID 4.8 mmol/L (0.4-2.0)
[2023-02-01 10:04] LABS: ANISOCYTOSIS 0; HELMET CELLS 0; HOWELL-JOLLY BODIES 0; MACROCYTOSIS 0; OVALOCYTE 0; ROULEAU 0; SICKELED CELLS 0; TARGET CELLS 0; TEAR DROP CELLS 0; TOXIC GRANULATION 0
[2023-02-01] MEDS ORDERED: NOREPINEPHRINE BITARTRATE/D5W 8 MG/250 ML BAG IVPB SCH (10:45)
[2023-02-01] MEDS: MEROPENEM 1 GM in DEXTROSE 5%-WATER 100 ML IVPB SCH (14:28)
[2023-02-01] MEDS: HYDROmorphone HCl 2 MG/ML VIAL IVPUSH PRN ×2 (18:24→22:30)
[2023-02-01] MEDS: NOREPINEPHRINE BITARTRATE/D5W 8 MG/250 ML BAG IVPB SCH (18:37)
[2023-02-01 19:58] LABS: LACTIC ACID 2.8 mmol/L (0.4-2.0)
[2023-02-01] MEDS: DOCUSATE SODIUM 100 MG CAPSULE (FP) PO SCH (21:21)
[2023-02-02] MEDS: MEROPENEM 1 GM in DEXTROSE 5%-WATER 100 ML IVPB SCH ×3 (00:59→11:26)
[2023-02-02] MEDS: NOREPINEPHRINE BITARTRATE/D5W 8 MG/250 ML BAG IVPB SCH ×2 (01:02→17:15)
[2023-02-02] MEDS: HYDROmorphone HCl 2 MG/ML VIAL IVPUSH PRN ×5 (02:21→20:26)
[2023-02-02] MEDS: DOCUSATE SODIUM 100 MG CAPSULE (FP) PO SCH ×3 (06:08→21:18)
[2023-02-02] MEDS ORDERED: VANCOMYCIN/WATER 1250 MG 1,250 MG/250 ML BAG IVPB SCH (07:00)
[2023-02-02] MEDS ORDERED: VANCOMYCIN/WATER 1250 MG 1,250 MG/250 ML BAG IVPB ONE ×2 (07:00→21:39)
[2023-02-02 07:23] LABS: HEMATOCRIT 35.6 % (32.4-45.2); HEMOGLOBIN 11.3 GM/dL (10.7-15.3); MCH 30.2 pg (25.7-33.7); MCHC 31.8 g/dl (32.0-36.0); MEAN CELL VOLUME 94.9 fl (80-96); MEAN PLT VOLUME 8.8 fl (7.5-11.1); PLATELET COUNT 235 10^3/uL (134-434); RBC 3.74 M/mm3 (3.60-5.2); RDW 14.4 % (11.6-15.6)
[2023-02-02 07:50] LABS: POTASSIUM 5.2 mmol/L (3.5-5.1)
[2023-02-02 07:52] LABS: CALCIUM 7.7 mg/dL (8.5-10.1)
[2023-02-02 07:53] LABS: ALBUMIN 1.7 g/dl (3.4-5.0); BLOOD UREA NITROGEN 94.9 mg/dL (7-18)
[2023-02-02 07:56] LABS: CREATININE 6.1 mg/dL (0.55-1.3); PHOSPHOROUS 6.5 mg/dL (2.5-4.9)
[2023-02-02 07:57] LABS: WHITE BLOOD COUNT 37.7 K/mm3 (4.0-10.0)
[2023-02-02 07:58] LABS: BILIRUBIN,TOTAL 3.6 mg/dL (0.2-1)
[2023-02-02] MEDS ORDERED: SODIUM CHLORIDE 1,000 ML IV SCH (09:45)
[2023-02-02] MEDS: MUPIROCIN 2% TOPICAL OINTMENT FOR DECOLONIZATION NS SCH ×2 (10:11→21:22)
[2023-02-02] MEDS: HEPARIN NA (PORCINE) 5,000 UNITS/ML 1ML VIAL SQ SCH ×2 (13:28→21:27)
[2023-02-02 13:39] LABS: VENOUS BASE EXCESS -11.1 mmol/L (-2-2); VENOUS PCO2 35.9 mmHg (38-52); VENOUS PH 7.246 (7.310-7.410)
[2023-02-02] MEDS ORDERED: SODIUM CHLORIDE 1,000 ML IV STA (16:56)
[2023-02-02 17:13] LABS: HEMATOCRIT 34.8 % (32.4-45.2); HEMOGLOBIN 11.3 GM/dL (10.7-15.3); MCH 30.3 pg (25.7-33.7); MCHC 32.3 g/dl (32.0-36.0); MEAN CELL VOLUME 93.7 fl (80-96); MEAN PLT VOLUME 8.1 fl (7.5-11.1); PLATELET COUNT 215 10^3/uL (134-434); RBC 3.72 M/mm3 (3.60-5.2); RDW 14.7 % (11.6-15.6)
[2023-02-02] MEDS ORDERED: PROPOFOL 20 ML ONE (17:13)
[2023-02-02] MEDS ORDERED: ROCURONIUM BROMIDE 50 MG/5 ML SYRINGE ONE ×2 (17:14→18:08)
[2023-02-02] MEDS ORDERED: MIDAZOLAM HCL 2 MG/2 ML SINGLE DOSE VIAL ONE (17:14)
[2023-02-02] MEDS ORDERED: SUGAMMADEX SODIUM 200 MG/2 ML VIAL ONE (17:14)
[2023-02-02] MEDS ORDERED: SODIUM CHLORIDE 250 ML IV PRN (17:27)
[2023-02-02 17:40] LABS: WHITE BLOOD COUNT 40.5 K/mm3 (4.0-10.0)
[2023-02-02 17:42] LABS: CHLORIDE 104 mmol/L (98-107); POTASSIUM 5.6 mmol/L (3.5-5.1); SODIUM 135 mmol/L (136-145)
[2023-02-02 17:44] LABS: CALCIUM 7.6 mg/dL (8.5-10.1)
[2023-02-02 17:45] LABS: LACTIC ACID 2.4 mmol/L (0.4-2.0)
[2023-02-02 17:45] LABS: ALBUMIN 1.6 g/dl (3.4-5.0); ANION GAP 13 MMOL/L (8-16); CO2 18 mmol/L (21-32); GLUCOSE,RANDOM 124 mg/dL (74-106); MAGNESIUM 2.1 mg/dL (1.8-2.4)
[2023-02-02 17:48] LABS: CREATININE 6.1 mg/dL (0.55-1.3); SGOT/AST 92 U/L (15-37); SGPT/ALT 38 U/L (13-61)
[2023-02-02 17:50] LABS: BILIRUBIN,TOTAL 3.8 mg/dL (0.2-1); TOT PROT 5.1 g/dl (6.4-8.2)
[2023-02-02 17:51] LABS: ALK PHOS 255 U/L (45-117)
[2023-02-02 17:53] LABS: BLOOD UREA NITROGEN 113.5 mg/dL (7-18); N-TERMINAL BNP 4082.7 pg/ml (5-125)
[2023-02-02 18:28] LABS: ACTIVATED PTT 28.4 SECONDS (25.2-36.5); INR 1.29 (0.83-1.09); PROTHROMBIN TIME (PATIENT) 14.9 SEC (9.7-13.0)
[2023-02-02] MEDS: CHLORHEXIDINE GLUCONATE 4% CLEANSER FOR DECOLONIZATION TP SCH (21:22)
[2023-02-02] MEDS ORDERED: HYDROCORTISONE SOD SUCCINATE 100 MG/2 ML VIAL IVPUSH SCH (23:45)
[2023-02-03] MEDS ORDERED: VASOPRESSIN 20 UNITS/ML VIAL IV ONE ×2 (00:12→14:55)
[2023-02-03] MEDS: VASOPRESSIN 40 UNITS/100 ML BAG IV SCH (00:15)
[2023-02-03 00:17] LABS: ARTERIAL BLD GAS O2 SATURATION 98.3 % (95-98); ARTERIAL BLOOD GAS BASE EXCESS -12.5 mmol/L (-2-2); ARTERIAL BLOOD GAS PO2 142.3 mmHg (80-100)
[2023-02-03 00:20] LABS: ARTERIAL BLOOD GAS pH 7.187 (7.350-7.450)
[2023-02-03] MEDS ORDERED: SODIUM BICARBONATE 8.4% 50 MEQ/50 ML DISP.SYRIN IVPUSH ONE ×2 (00:22→02:39)
[2023-02-03] MEDS ORDERED: SODIUM BICARBONATE 8.4% 50 MEQ/50 ML VIAL ONE (00:26)
[2023-02-03] MEDS ORDERED: DEXTROSE 5%-WATER - 1,000 ML with SODIUM BICARBONATE 8.4% - 150 MEQ IV SCH (00:30)
[2023-02-03 01:40] LABS: CHLORIDE 107 mmol/L (98-107); SODIUM 138 mmol/L (136-145)
[2023-02-03] MEDS: HYDROmorphone HCl 2 MG/ML VIAL IVPUSH PRN ×4 (01:41→21:06)
[2023-02-03 01:42] LABS: CALCIUM 7.5 mg/dL (8.5-10.1)
[2023-02-03 01:43] LABS: ALBUMIN 1.4 g/dl (3.4-5.0); CO2 19 mmol/L (21-32); GLUCOSE,RANDOM 114 mg/dL (74-106); MAGNESIUM 2.1 mg/dL (1.8-2.4)
[2023-02-03 01:46] LABS: CREATININE 5.8 mg/dL (0.55-1.3); SGOT/AST 99 U/L (15-37); SGPT/ALT 43 U/L (13-61)
[2023-02-03 01:48] LABS: BILIRUBIN,TOTAL 3.6 mg/dL (0.2-1); TOT PROT 4.6 g/dl (6.4-8.2)
[2023-02-03 01:49] LABS: ALK PHOS 261 U/L (45-117)
[2023-02-03 02:31] LABS: ANION GAP 12 MMOL/L (8-16); BLOOD UREA NITROGEN 116.3 mg/dL (7-18); POTASSIUM 6.3 mmol/L (3.5-5.1)
[2023-02-03] MEDS ORDERED: DEXTROSE 50%-WATER - 25 GM/50 ML VIAL IVPUSH ONE ×2 (02:38→06:34)
[2023-02-03] MEDS ORDERED: CALCIUM GLUCONATE IN NACL 1 GM/50 ML BAG IVPB ONE (02:38)
[2023-02-03] MEDS ORDERED: INSULIN REGULAR HUMAN 100 UNITS/ML *VIAL IVPUSH ONE ×2 (02:39→06:34)
[2023-02-03] MEDS ORDERED: DEXTROSE 50%-WATER 25 GM/50 ML DISP.SYRIN ONE ×2 (02:46→06:38)
[2023-02-03] MEDS ORDERED: NOREPINEPHRINE BITARTRATE 4 MG/4 ML ML IV ONE ×3 (04:53→22:36)
[2023-02-03] MEDS: DOCUSATE SODIUM 100 MG CAPSULE (FP) PO SCH ×3 (06:10→21:08)
[2023-02-03] MEDS: HEPARIN NA (PORCINE) 5,000 UNITS/ML 1ML VIAL SQ SCH ×3 (06:10→21:06)
[2023-02-03] MEDS ORDERED: CALCIUM GLUCONATE 10% - 1,000 MG/10 ML VIAL IVPB ONE (06:35)
[2023-02-03 07:19] LABS: HEMATOCRIT 31.7 % (32.4-45.2); HEMOGLOBIN 9.9 GM/dL (10.7-15.3); MCH 29.7 pg (25.7-33.7); MCHC 31.1 g/dl (32.0-36.0); MEAN CELL VOLUME 95.5 fl (80-96); MEAN PLT VOLUME 8.6 fl (7.5-11.1); PLATELET COUNT 207 10^3/uL (134-434); RBC 3.32 M/mm3 (3.60-5.2); RDW 14.5 % (11.6-15.6)
[2023-02-03 07:27] LABS: INR 1.36 (0.83-1.09); PROTHROMBIN TIME (PATIENT) 15.7 SEC (9.7-13.0)
[2023-02-03 07:29] LABS: ACTIVATED PTT 27.9 SECONDS (25.2-36.5)
[2023-02-03 07:35] LABS: WHITE BLOOD COUNT 51.5 K/mm3 (4.0-10.0)
[2023-02-03 07:37] LABS: CHLORIDE 104 mmol/L (98-107); SODIUM 135 mmol/L (136-145)
[2023-02-03 07:41] LABS: CALCIUM 7.6 mg/dL (8.5-10.1)
[2023-02-03 07:42] LABS: ALBUMIN 1.5 g/dl (3.4-5.0); CO2 19 mmol/L (21-32); GLUCOSE,RANDOM 220 mg/dL (74-106); MAGNESIUM 2.2 mg/dL (1.8-2.4)
[2023-02-03 07:45] LABS: CREATININE 5.7 mg/dL (0.55-1.3); PHOSPHOROUS 8.6 mg/dL (2.5-4.9); SGOT/AST 116 U/L (15-37); SGPT/ALT 45 U/L (13-61)
[2023-02-03 07:46] LABS: BILIRUBIN,TOTAL 4.1 mg/dL (0.2-1); TOT PROT 4.6 g/dl (6.4-8.2)
[2023-02-03 07:48] LABS: ALK PHOS 280 U/L (45-117)
[2023-02-03 07:57] LABS: ANION GAP 12 MMOL/L (8-16); BLOOD UREA NITROGEN 105.2 mg/dL (7-18); POTASSIUM 6.7 mmol/L (3.5-5.1)
[2023-02-03] MEDS: PHENYLEPHRINE NS PREMIX 50,000 MCG/500 ML BAG CVP SCH (08:15)
[2023-02-03] MEDS ORDERED: VANCOMYCIN/WATER 1250 MG 1,250 MG/250 ML BAG IVPB ONE (08:21)
[2023-02-03] MEDS ORDERED: PHENYLEPHRINE HCL 10 MG/1 ML SINGLE DOSE VIAL ONE (08:43)
[2023-02-03 09:00] LABS: ANISOCYTOSIS 0; HELMET CELLS 0; HOWELL-JOLLY BODIES 0; MACROCYTOSIS 0; OVALOCYTE 0; ROULEAU 0; SICKELED CELLS 0; TARGET CELLS 0; TEAR DROP CELLS 0; TOXIC GRANULATION 0
[2023-02-03] MEDS ORDERED: SODIUM HYPOCHLORITE 0.25%- 473 ML BULK BOTTLE TP SCH (10:00)
[2023-02-03] MEDS: PANTOPRAZOLE SODIUM 40 MG VIAL IVPUSH SCH (11:10)
[2023-02-03] MEDS: MEROPENEM 1 GM in DEXTROSE 5%-WATER 100 ML IVPB SCH (11:10)
[2023-02-03] MEDS: HYDROCORTISONE SOD SUCCINATE 100 MG/2 ML VIAL IVPUSH SCH ×2 (11:10→17:19)
[2023-02-03 11:55] LABS: ARTERIAL BLD GAS O2 SATURATION 95.6 % (95-98); ARTERIAL BLOOD GAS pH 7.351 (7.350-7.450)
[2023-02-03 11:56] LABS: ALLENS TEST POSITIVE
[2023-02-03 13:07] LABS: POTASSIUM 5.4 mmol/L (3.5-5.1)
[2023-02-03 13:08] LABS: CALCIUM 7.5 mg/dL (8.5-10.1)
[2023-02-03 13:12] LABS: CREATININE 4.1 mg/dL (0.55-1.3)
[2023-02-03 13:24] LABS: BLOOD UREA NITROGEN 73.4 mg/dL (7-18)
[2023-02-03] MEDS: CLINDAMYCIN 900 MG PREMIX IVPB 900 MG/50 ML BAG IVPB SCH ×2 (13:37→17:45)
[2023-02-03] MEDS: MUPIROCIN 2% TOPICAL OINTMENT FOR DECOLONIZATION NS SCH ×3 (13:38→21:24)
[2023-02-03] MEDS: SODIUM CHLORIDE 0.45% 1,000 ML IV SCH (15:21)
[2023-02-03] MEDS: SODIUM ZIRCONIUM CYCLOSILICATE (LOKELMA) 5 GM PACKET PO SCH ×2 (15:21→21:09)
[2023-02-03] MEDS ORDERED: INSULIN SLIDING SCALE (NOVOLOG) 1 VIAL SQ SCH (16:30)
[2023-02-03] MEDS: ACETAMINOPHEN 1000 MG/100 ML BAG IVPB PRN (17:27)
[2023-02-03] MEDS: NOREPINEPHRINE BITARTRATE/D5W 8 MG/250 ML BAG IVPB SCH (18:30)
[2023-02-03] MEDS: CHLORHEXIDINE GLUCONATE 4% CLEANSER FOR DECOLONIZATION TP SCH (21:09)
[2023-02-03] MEDS: INSULIN SLIDING SCALE (NOVOLOG) 1 VIAL SQ SCH (22:59)
[2023-02-04] MEDS: HYDROCORTISONE SOD SUCCINATE 100 MG/2 ML VIAL IVPUSH SCH ×3 (01:01→17:19)
[2023-02-04] MEDS: CLINDAMYCIN 900 MG PREMIX IVPB 900 MG/50 ML BAG IVPB SCH ×3 (01:01→17:22)
[2023-02-04] MEDS: ACETAMINOPHEN 1000 MG/100 ML BAG IVPB PRN (01:03)
[2023-02-04] MEDS: HYDROmorphone HCl 2 MG/ML VIAL IVPUSH PRN (05:14)
[2023-02-04] MEDS: HEPARIN NA (PORCINE) 5,000 UNITS/ML 1ML VIAL SQ SCH ×2 (05:16→21:16)
[2023-02-04] MEDS: DOCUSATE SODIUM 100 MG CAPSULE (FP) PO SCH ×3 (05:16→21:18)
[2023-02-04] MEDS: VASOPRESSIN 40 UNITS/100 ML BAG IV SCH (05:16)
[2023-02-04] MEDS: INSULIN SLIDING SCALE (NOVOLOG) 1 VIAL SQ SCH ×3 (05:17→17:46)
[2023-02-04] MEDS: SODIUM CHLORIDE 0.45% 1,000 ML IV SCH ×2 (05:22→17:14)
[2023-02-04 06:20] LABS: ARTERIAL BLD GAS O2 SATURATION 99.2 % (95-98); ARTERIAL BLOOD GAS PO2 166.3 mmHg (80-100); ARTERIAL BLOOD GAS pH 7.415 (7.350-7.450)
[2023-02-04 07:04] LABS: HEMATOCRIT 29.1 % (32.4-45.2); HEMOGLOBIN 9.3 GM/dL (10.7-15.3); MCH 29.9 pg (25.7-33.7); MEAN CELL VOLUME 93.4 fl (80-96); MEAN PLT VOLUME 8.1 fl (7.5-11.1); PLATELET COUNT 158 10^3/uL (134-434); RBC 3.12 M/mm3 (3.60-5.2); RDW 14.4 % (11.6-15.6)
[2023-02-04 07:21] LABS: WHITE BLOOD COUNT 50.2 K/mm3 (4.0-10.0)
[2023-02-04 07:22] LABS: CHLORIDE 104 mmol/L (98-107); SODIUM 136 mmol/L (136-145)
[2023-02-04 07:25] LABS: ALBUMIN 1.4 g/dl (3.4-5.0)
[2023-02-04 07:26] LABS: CO2 19 mmol/L (21-32); MAGNESIUM 2.3 mg/dL (1.8-2.4)
[2023-02-04 07:28] LABS: GLUCOSE,RANDOM 345 mg/dL (74-106)
[2023-02-04 07:29] LABS: CREATININE 4.4 mg/dL (0.55-1.3); SGOT/AST 111 U/L (15-37); SGPT/ALT 50 U/L (13-61)
[2023-02-04 07:30] LABS: BILIRUBIN,TOTAL 3.5 mg/dL (0.2-1)
[2023-02-04 07:31] LABS: PHOSPHOROUS 8.9 mg/dL (2.5-4.9); TOT PROT 4.6 g/dl (6.4-8.2)
[2023-02-04 07:35] LABS: ALK PHOS 324 U/L (45-117); ANION GAP 14 MMOL/L (8-16); BLOOD UREA NITROGEN 101.5 mg/dL (7-18); CALCIUM 6.6 mg/dL (8.5-10.1); POTASSIUM 6.5 mmol/L (3.5-5.1)
[2023-02-04] MEDS: PHENYLEPHRINE NS PREMIX 50,000 MCG/500 ML BAG CVP SCH (08:15)
[2023-02-04] MEDS ORDERED: INSULIN REGULAR HUMAN 100 UNITS/ML *VIAL IVPUSH ONE (08:15)
[2023-02-04] MEDS ORDERED: CALCIUM GLUCONATE IN NACL 1 GM/50 ML BAG IVPB ONE (08:15)
[2023-02-04] MEDS ORDERED: SODIUM CHLORIDE 250 ML IV PRN (08:39)
[2023-02-04 08:59] LABS: ANISOCYTOSIS 0; MACROCYTOSIS 0
[2023-02-04] MEDS: PANTOPRAZOLE SODIUM 40 MG VIAL IVPUSH SCH (09:03)
[2023-02-04] MEDS: SODIUM ZIRCONIUM CYCLOSILICATE (LOKELMA) 5 GM PACKET PO SCH (09:03)
[2023-02-04] MEDS: MUPIROCIN 2% TOPICAL OINTMENT FOR DECOLONIZATION NS SCH ×2 (09:04→21:17)
[2023-02-04] MEDS ORDERED: HYDROmorphone HCl 2 MG/ML VIAL IVPUSH PRN (10:18)
[2023-02-04 12:17] LABS: CREATININE 1.1 mg/dL (0.55-1.3)
[2023-02-04 12:20] LABS: CALCIUM 8.3 mg/dL (8.5-10.1)
[2023-02-04] MEDS: MEROPENEM 1 GM in DEXTROSE 5%-WATER 100 ML IVPB SCH (12:32)
[2023-02-04] MEDS ORDERED: ETOMIDATE 20 MG/10 ML VIAL IVPUSH ONE (14:49)
[2023-02-04] MEDS ORDERED: ROCURONIUM BROMIDE 50 MG/5 ML SYRINGE ONE (15:41)
[2023-02-04] MEDS ORDERED: SUGAMMADEX SODIUM 200 MG/2 ML VIAL ONE (15:57)
[2023-02-04] MEDS ORDERED: ONDANSETRON 4 MG/2 ML VIAL ONE (16:09)
[2023-02-04] MEDS ORDERED: VASOPRESSIN 20 UNITS/ML VIAL IV ONE (16:54)
[2023-02-04] MEDS ORDERED: NOREPINEPHRINE BITARTRATE 4 MG/4 ML ML IV ONE (16:54)
[2023-02-04] MEDS: NOREPINEPHRINE BITARTRATE/D5W 8 MG/250 ML BAG IVPB SCH ×2 (17:49→19:15)
[2023-02-04] MEDS: CHLORHEXIDINE GLUCONATE 4% CLEANSER FOR DECOLONIZATION TP SCH (21:18)
[2023-02-05] MEDS ORDERED: INSULIN (NOVOLOG) ASPART 100 UNITS/ML 10ML VIAL ONE ×4 (00:09→21:04)
[2023-02-05] MEDS: INSULIN SLIDING SCALE (NOVOLOG) 1 VIAL SQ SCH ×5 (00:42→23:50)
[2023-02-05] MEDS: VASOPRESSIN 40 UNITS/100 ML BAG IV SCH ×3 (00:43→23:50)
[2023-02-05] MEDS: CLINDAMYCIN 900 MG PREMIX IVPB 900 MG/50 ML BAG IVPB SCH ×3 (00:59→17:02)
[2023-02-05] MEDS: HYDROCORTISONE SOD SUCCINATE 100 MG/2 ML VIAL IVPUSH SCH ×3 (01:00→21:07)
[2023-02-05] MEDS: DOCUSATE SODIUM 100 MG CAPSULE (FP) PO SCH ×3 (06:43→21:07)
[2023-02-05] MEDS: HEPARIN NA (PORCINE) 5,000 UNITS/ML 1ML VIAL SQ SCH (06:43)
[2023-02-05 07:01] LABS: HEMATOCRIT 27.7 % (32.4-45.2); HEMOGLOBIN 8.8 GM/dL (10.7-15.3); MCH 30.2 pg (25.7-33.7); MCHC 31.8 g/dl (32.0-36.0); MEAN CELL VOLUME 94.9 fl (80-96); MEAN PLT VOLUME 8.2 fl (7.5-11.1); PLATELET COUNT 78 10^3/uL (134-434); RBC 2.92 M/mm3 (3.60-5.2); RDW 14.1 % (11.6-15.6)
[2023-02-05 07:12] LABS: CHLORIDE 100 mmol/L (98-107); POTASSIUM 5.3 mmol/L (3.5-5.1); SODIUM 136 mmol/L (136-145)
[2023-02-05 07:16] LABS: WHITE BLOOD COUNT 39.9 K/mm3 (4.0-10.0)
[2023-02-05 07:20] LABS: ALBUMIN 1.4 g/dl (3.4-5.0); ANION GAP 12 MMOL/L (8-16); CO2 24 mmol/L (21-32); GLUCOSE,RANDOM 374 mg/dL (74-106); MAGNESIUM 2.4 mg/dL (1.8-2.4)
[2023-02-05 07:22] LABS: SGOT/AST 79 U/L (15-37)
[2023-02-05 07:23] LABS: BILIRUBIN,TOTAL 3.2 mg/dL (0.2-1); CREATININE 3.7 mg/dL (0.55-1.3); PHOSPHOROUS 8.8 mg/dL (2.5-4.9); SGPT/ALT 51 U/L (13-61); TOT PROT 4.8 g/dl (6.4-8.2)
[2023-02-05 07:26] LABS: ALK PHOS 259 U/L (45-117); BLOOD UREA NITROGEN 85.2 mg/dL (7-18); CALCIUM 6.3 mg/dL (8.5-10.1)
[2023-02-05] MEDS: HYDROmorphone HCl 2 MG/ML VIAL IVPUSH PRN ×4 (07:31→23:51)
[2023-02-05] MEDS: SODIUM CHLORIDE 0.45% 1,000 ML IV SCH ×2 (07:31→15:41)
[2023-02-05] MEDS ORDERED: CALCIUM GLUCONATE 10% - 1,000 MG/10 ML VIAL IVPB ONE (08:00)
[2023-02-05] MEDS ORDERED: INSULIN REGULAR HUMAN 100 UNITS/ML *VIAL IVPUSH ONE (08:01)
[2023-02-05] MEDS ORDERED: DEXTROSE 50%-WATER - 25 GM/50 ML VIAL IVPUSH ONE (08:03)
[2023-02-05] MEDS ORDERED: DEXTROSE 50%-WATER 25 GM/50 ML DISP.SYRIN ONE (08:11)
[2023-02-05] MEDS ORDERED: SODIUM CHLORIDE 250 ML IV PRN (08:18)
[2023-02-05] MEDS: PHENYLEPHRINE NS PREMIX 50,000 MCG/500 ML BAG CVP SCH (08:37)
[2023-02-05] MEDS: PANTOPRAZOLE SODIUM 40 MG VIAL IVPUSH SCH (09:09)
[2023-02-05] MEDS: MUPIROCIN 2% TOPICAL OINTMENT FOR DECOLONIZATION NS SCH ×2 (09:10→21:07)
[2023-02-05 09:44] LABS: BILIRUBIN,DIRECT 2.7 mg/dL (0.0-0.2)
[2023-02-05] MEDS: MEROPENEM 1 GM in DEXTROSE 5%-WATER 100 ML IVPB SCH (10:05)
[2023-02-05 11:06] LABS: INR 1.98 (0.83-1.09); PROTHROMBIN TIME (PATIENT) 22.8 SEC (9.7-13.0)
[2023-02-05 11:09] LABS: ACTIVATED PTT 33.8 SECONDS (25.2-36.5)
[2023-02-05] MEDS: AMINO ACIDS 4.25%/D5W 1,000 ML IV SCH (12:22)
[2023-02-05] MEDS: NOREPINEPHRINE BITARTRATE/D5W 8 MG/250 ML BAG IVPB SCH (18:35)
[2023-02-05] MEDS: INSULIN (LEVEMIR) 100 UNITS/ML UNITS SQ SCH (21:06)
[2023-02-05] MEDS: CHLORHEXIDINE GLUCONATE 4% CLEANSER FOR DECOLONIZATION TP SCH (21:07)
[2023-02-06] MEDS: SODIUM CHLORIDE 0.45% 1,000 ML IV SCH ×2 (00:31→17:40)
[2023-02-06] MEDS: CLINDAMYCIN 900 MG PREMIX IVPB 900 MG/50 ML BAG IVPB SCH ×3 (02:53→17:41)
[2023-02-06] MEDS: DOCUSATE SODIUM 100 MG CAPSULE (FP) PO SCH ×3 (06:31→21:35)
[2023-02-06] MEDS: INSULIN SLIDING SCALE (NOVOLOG) 1 VIAL SQ SCH ×3 (06:31→17:53)
[2023-02-06 07:33] LABS: HEMATOCRIT 24.7 % (32.4-45.2); MCH 30.5 pg (25.7-33.7); MCHC 32.5 g/dl (32.0-36.0); MEAN CELL VOLUME 93.7 fl (80-96); MEAN PLT VOLUME 9.5 fl (7.5-11.1); RBC 2.63 M/mm3 (3.60-5.2); RDW 13.6 % (11.6-15.6)
[2023-02-06 07:41] LABS: PLATELET COUNT 35 10^3/uL (134-434); WHITE BLOOD COUNT 22.8 K/mm3 (4.0-10.0)
[2023-02-06 07:58] LABS: CHLORIDE 101 mmol/L (98-107); POTASSIUM 4.1 mmol/L (3.5-5.1); SODIUM 139 mmol/L (136-145)
[2023-02-06 08:15] LABS: ALBUMIN 1.4 g/dl (3.4-5.0)
[2023-02-06 08:16] LABS: ANION GAP 13 MMOL/L (8-16); BLOOD UREA NITROGEN 75.5 mg/dL (7-18); CO2 25 mmol/L (21-32); GLUCOSE,RANDOM 329 mg/dL (74-106); MAGNESIUM 2.2 mg/dL (1.8-2.4)
[2023-02-06 08:18] LABS: CREATININE 3.2 mg/dL (0.55-1.3); PHOSPHOROUS 6.9 mg/dL (2.5-4.9); SGOT/AST 53 U/L (15-37); SGPT/ALT 45 U/L (13-61)
[2023-02-06 08:19] LABS: LDH 431 U/L (84-246)
[2023-02-06 08:20] LABS: TOT PROT 4.8 g/dl (6.4-8.2)
[2023-02-06 08:31] LABS: ALK PHOS 210 U/L (45-117); CALCIUM 6.5 mg/dL (8.5-10.1)
[2023-02-06 08:49] LABS: ANISOCYTOSIS 0; HELMET CELLS 0; HOWELL-JOLLY BODIES 0; MACROCYTOSIS 0; OVALOCYTE 0; ROULEAU 0; SICKELED CELLS 0; TARGET CELLS 0; TEAR DROP CELLS 0; TOXIC GRANULATION 0
[2023-02-06] MEDS ORDERED: ACETAMINOPHEN 1000 MG/100 ML BAG IVPB PRN (09:46)
[2023-02-06] MEDS ORDERED: ARTIFICIAL TEARS (POLYVINYL ALCOHOL) OPTH DROPS OU PRN (09:48)
[2023-02-06] MEDS: PANTOPRAZOLE SODIUM 40 MG VIAL IVPUSH SCH (10:05)
[2023-02-06] MEDS: HYDROCORTISONE SOD SUCCINATE 100 MG/2 ML VIAL IVPUSH SCH ×2 (10:05→21:35)
[2023-02-06] MEDS: MEROPENEM 1 GM in DEXTROSE 5%-WATER 100 ML IVPB SCH (10:05)
[2023-02-06] MEDS: MUPIROCIN 2% TOPICAL OINTMENT FOR DECOLONIZATION NS SCH ×2 (10:06→22:07)
[2023-02-06] MEDS: AMINO ACIDS 4.25%/D5W 1,000 ML IV SCH (11:57)
[2023-02-06] MEDS ORDERED: INSULIN (NOVOLOG) ASPART 100 UNITS/ML 10ML VIAL ONE ×2 (12:05→21:19)
[2023-02-06] MEDS: hydrALAZINE HCL 20 MG/ML VIAL IVPUSH PRN (12:29)
[2023-02-06] MEDS ORDERED: VANCOMYCIN/WATER FOR INJ (PEG) 1,000 MG/200 ML BAG IVPB ONE (13:51)
[2023-02-06] MEDS: HYDROmorphone HCl 2 MG/ML VIAL IVPUSH PRN ×2 (13:52→22:07)
[2023-02-06 14:48] VITALS: BMI 53.8
[2023-02-06] MEDS: AMINO ACIDS/PROTEIN HYDROLYS 30 ML LIQUID.PKT PO SCH (17:41)
[2023-02-06] MEDS: INSULIN (LEVEMIR) 100 UNITS/ML UNITS SQ SCH (21:34)
[2023-02-06] MEDS: CHLORHEXIDINE GLUCONATE 4% CLEANSER FOR DECOLONIZATION TP SCH (21:34)
[2023-02-07] MEDS: INSULIN SLIDING SCALE (NOVOLOG) 1 VIAL SQ SCH ×5 (00:34→21:31)
[2023-02-07] MEDS: CLINDAMYCIN 900 MG PREMIX IVPB 900 MG/50 ML BAG IVPB SCH ×3 (01:54→17:34)
[2023-02-07] MEDS: PHENYLEPHRINE NS PREMIX 50,000 MCG/500 ML BAG CVP SCH ×2 (01:54→20:32)
[2023-02-07] MEDS: VASOPRESSIN 40 UNITS/100 ML BAG IV SCH (01:54)
[2023-02-07] MEDS: NOREPINEPHRINE BITARTRATE/D5W 8 MG/250 ML BAG IVPB SCH ×2 (01:54→20:32)
[2023-02-07] MEDS ORDERED: INSULIN (NOVOLOG) ASPART 100 UNITS/ML 10ML VIAL ONE (06:48)
[2023-02-07] MEDS: DOCUSATE SODIUM 100 MG CAPSULE (FP) PO SCH ×3 (06:49→21:31)
[2023-02-07 07:08] LABS: HEMATOCRIT 28.3 % (32.4-45.2); HEMOGLOBIN 9.2 GM/dL (10.7-15.3); MCH 29.6 pg (25.7-33.7); MCHC 32.6 g/dl (32.0-36.0); MEAN CELL VOLUME 90.7 fl (80-96); MEAN PLT VOLUME 9.1 fl (7.5-11.1); PLATELET COUNT 70 10^3/uL (134-434); RBC 3.12 M/mm3 (3.60-5.2); RDW 14.6 % (11.6-15.6); WHITE BLOOD COUNT 21.1 K/mm3 (4.0-10.0)
[2023-02-07 07:30] LABS: CHLORIDE 97 mmol/L (98-107); POTASSIUM 4.4 mmol/L (3.5-5.1); SODIUM 134 mmol/L (136-145)
[2023-02-07 07:33] LABS: ANION GAP 13 MMOL/L (8-16); CO2 24 mmol/L (21-32); MAGNESIUM 2.4 mg/dL (1.8-2.4)
[2023-02-07 07:34] LABS: GLUCOSE,RANDOM 332 mg/dL (74-106)
[2023-02-07 07:36] LABS: CREATININE 3.9 mg/dL (0.55-1.3); SGPT/ALT 49 U/L (13-61)
[2023-02-07 07:37] LABS: BILIRUBIN,TOTAL 3.3 mg/dL (0.2-1); SGOT/AST 50 U/L (15-37); TOT PROT 5.3 g/dl (6.4-8.2)
[2023-02-07 07:39] LABS: ALK PHOS 193 U/L (45-117)
[2023-02-07 07:44] LABS: ALBUMIN 1.7 g/dl (3.4-5.0); BLOOD UREA NITROGEN 100.5 mg/dL (7-18); CALCIUM 6.4 mg/dL (8.5-10.1)
[2023-02-07] MEDS: AMINO ACIDS/PROTEIN HYDROLYS 30 ML LIQUID.PKT PO SCH ×3 (08:34→17:42)
[2023-02-07] MEDS: AMINO ACIDS 4.25%/D5W 1,000 ML IV SCH ×2 (08:38→12:08)
[2023-02-07] MEDS ORDERED: PROMETHAZINE HCL 25 MG/1 ML VIAL IVPB PRN (08:59)
[2023-02-07] MEDS ORDERED: ONDANSETRON 4 MG/2 ML VIAL IVPUSH PRN (08:59)
[2023-02-07] MEDS ORDERED: LACTATED RINGERS SOLUTION 1,000 ML IV SCH (09:00)
[2023-02-07 09:02] LABS: ANISOCYTOSIS 0; HELMET CELLS 0; HOWELL-JOLLY BODIES 0; MACROCYTOSIS 0; OVALOCYTE 0; ROULEAU 0; SICKELED CELLS 0; TARGET CELLS 0; TEAR DROP CELLS 0; TOXIC GRANULATION 0
[2023-02-07] MEDS ORDERED: PROPOFOL 40 ML ONE (09:12)
[2023-02-07] MEDS ORDERED: LIDOCAINE HCL/PF 2% SDV 5ML VIAL ONE (09:14)
[2023-02-07] MEDS ORDERED: ROCURONIUM BROMIDE 50 MG/5 ML SYRINGE ONE (09:43)
[2023-02-07] MEDS ORDERED: CLINDAMYCIN PHOSPHATE 600 MG/4 ML VIAL ONE (09:43)
[2023-02-07] MEDS ORDERED: CLINDAMYCIN 900 MG PREMIX BAG IVPB ONE (09:50)
[2023-02-07] MEDS ORDERED: MIDAZOLAM HCL 2 MG/2 ML SINGLE DOSE VIAL ONE (09:59)
[2023-02-07] MEDS: VITAMIN B COMP W-C 1 EA TABLET (NEPHRO-VITE) PO SCH (10:00)
[2023-02-07] MEDS ORDERED: ONDANSETRON 4 MG/2 ML VIAL ONE (10:00)
[2023-02-07] MEDS ORDERED: METOCLOPRAMIDE HCL INJECTION 10 MG/2 ML VIAL ONE (10:00)
[2023-02-07] MEDS ORDERED: MEROPENEM 1 GM VIAL (RESTRICTED TO ID) IVPB ONE (10:44)
[2023-02-07] MEDS ORDERED: SUGAMMADEX SODIUM 200 MG/2 ML VIAL ONE (10:50)
[2023-02-07] MEDS ORDERED: METOPROLOL TARTRATE 5 MG/5 ML VIAL ONE (10:58)
[2023-02-07] MEDS: ACETAMINOPHEN 1000 MG/100 ML BAG IVPB PRN (12:01)
[2023-02-07] MEDS: HYDROCORTISONE SOD SUCCINATE 100 MG/2 ML VIAL IVPUSH SCH (12:07)
[2023-02-07] MEDS: PANTOPRAZOLE SODIUM 40 MG VIAL IVPUSH SCH (12:07)
[2023-02-07] MEDS: INSULIN (LEVEMIR) 100 UNITS/ML UNITS SQ SCH ×2 (12:08→21:31)
[2023-02-07] MEDS: MEROPENEM 1 GM in DEXTROSE 5%-WATER 100 ML IVPB SCH (12:08)
[2023-02-07] MEDS: HYDROmorphone HCl 2 MG/ML VIAL IVPUSH PRN (14:58)
[2023-02-07 15:01] LABS: HEMOGLOBIN 9.7 GM/dL (10.7-15.3); MCH 29.7 pg (25.7-33.7); MCHC 32.2 g/dl (32.0-36.0); MEAN CELL VOLUME 92.2 fl (80-96); MEAN PLT VOLUME 8.9 fl (7.5-11.1); PLATELET COUNT 87 10^3/uL (134-434); RBC 3.26 M/mm3 (3.60-5.2); RDW 14.8 % (11.6-15.6); WHITE BLOOD COUNT 27.5 K/mm3 (4.0-10.0)
[2023-02-07 15:08] LABS: INR 1.38 (0.83-1.09)
[2023-02-07 15:41] LABS: ANISOCYTOSIS 0; HELMET CELLS 0; HOWELL-JOLLY BODIES 0; MACROCYTOSIS 0; OVALOCYTE 0; ROULEAU 0; SICKELED CELLS 0; TARGET CELLS 0; TEAR DROP CELLS 0; TOXIC GRANULATION 0
[2023-02-07] MEDS: CHLORHEXIDINE GLUCONATE 4% CLEANSER FOR DECOLONIZATION TP SCH (21:31)
[2023-02-08] MEDS: VASOPRESSIN 40 UNITS/100 ML BAG IV SCH (00:27)
[2023-02-08] MEDS: CLINDAMYCIN 900 MG PREMIX IVPB 900 MG/50 ML BAG IVPB SCH ×3 (01:12→17:46)
[2023-02-08] MEDS: HYDROmorphone HCl 2 MG/ML VIAL IVPUSH PRN ×2 (06:03→11:03)
[2023-02-08] MEDS: INSULIN SLIDING SCALE (NOVOLOG) 1 VIAL SQ SCH ×4 (06:04→21:38)
[2023-02-08] MEDS: INSULIN (LEVEMIR) 100 UNITS/ML UNITS SQ SCH ×2 (06:04→21:38)
[2023-02-08] MEDS: DOCUSATE SODIUM 100 MG CAPSULE (FP) PO SCH ×3 (06:05→21:38)
[2023-02-08 07:10] LABS: HEMATOCRIT 30.3 % (32.4-45.2); HEMOGLOBIN 9.8 GM/dL (10.7-15.3); MCHC 32.4 g/dl (32.0-36.0); MEAN CELL VOLUME 92.6 fl (80-96); MEAN PLT VOLUME 10.2 fl (7.5-11.1); PLATELET COUNT 93 10^3/uL (134-434); RBC 3.27 M/mm3 (3.60-5.2); RDW 14.4 % (11.6-15.6); WHITE BLOOD COUNT 24.3 K/mm3 (4.0-10.0)
[2023-02-08 07:25] LABS: CHLORIDE 97 mmol/L (98-107); POTASSIUM 4.6 mmol/L (3.5-5.1); SODIUM 135 mmol/L (136-145)
[2023-02-08 07:28] LABS: ALBUMIN 1.7 g/dl (3.4-5.0); ANION GAP 17 MMOL/L (8-16); CO2 21 mmol/L (21-32); GLUCOSE,RANDOM 243 mg/dL (74-106); MAGNESIUM 2.5 mg/dL (1.8-2.4)
[2023-02-08 07:30] LABS: CREATININE 4.1 mg/dL (0.55-1.3); SGOT/AST 62 U/L (15-37); SGPT/ALT 54 U/L (13-61)
[2023-02-08 07:33] LABS: ALK PHOS 203 U/L (45-117); BILIRUBIN,TOTAL 4.3 mg/dL (0.2-1); TOT PROT 5.4 g/dl (6.4-8.2)
[2023-02-08 07:42] LABS: BLOOD UREA NITROGEN 115.3 mg/dL (7-18); CALCIUM 6.7 mg/dL (8.5-10.1)
[2023-02-08] MEDS: ACETAMINOPHEN 1000 MG/100 ML BAG IVPB PRN (08:28)
[2023-02-08] MEDS: hydrALAZINE HCL 20 MG/ML VIAL IVPUSH PRN (08:30)
[2023-02-08 08:45] LABS: ANISOCYTOSIS 1+; MACROCYTOSIS 0; OVALOCYTE 1+
[2023-02-08] MEDS: MEROPENEM 1 GM in DEXTROSE 5%-WATER 100 ML IVPB SCH (09:17)
[2023-02-08] MEDS: PHENYLEPHRINE NS PREMIX 50,000 MCG/500 ML BAG CVP SCH (09:18)
[2023-02-08] MEDS: VITAMIN B COMP W-C 1 EA TABLET (NEPHRO-VITE) PO SCH (09:19)
[2023-02-08] MEDS: PANTOPRAZOLE SODIUM 40 MG VIAL IVPUSH SCH (09:19)
[2023-02-08] MEDS: AMINO ACIDS/PROTEIN HYDROLYS 30 ML LIQUID.PKT PO SCH ×3 (09:20→17:43)
[2023-02-08] MEDS ORDERED: INSULIN (NOVOLOG) ASPART 100 UNITS/ML 10ML VIAL ONE ×2 (11:40→21:34)
[2023-02-08] MEDS ORDERED: SODIUM CHLORIDE 250 ML IV PRN (14:41)
[2023-02-08] MEDS: NOREPINEPHRINE BITARTRATE/D5W 8 MG/250 ML BAG IVPB SCH (18:50)
[2023-02-08] MEDS: CHLORHEXIDINE GLUCONATE 4% CLEANSER FOR DECOLONIZATION TP SCH (21:42)
[2023-02-09] MEDS: CLINDAMYCIN 900 MG PREMIX IVPB 900 MG/50 ML BAG IVPB SCH ×3 (02:30→17:39)
[2023-02-09] MEDS: VASOPRESSIN 40 UNITS/100 ML BAG IV SCH (03:36)
[2023-02-09] MEDS ORDERED: INSULIN (NOVOLOG) ASPART 100 UNITS/ML 10ML VIAL ONE ×2 (06:26→12:19)
[2023-02-09] MEDS: INSULIN (LEVEMIR) 100 UNITS/ML UNITS SQ SCH ×2 (06:29→22:05)
[2023-02-09] MEDS: DOCUSATE SODIUM 100 MG CAPSULE (FP) PO SCH ×3 (06:30→21:26)
[2023-02-09] MEDS: INSULIN SLIDING SCALE (NOVOLOG) 1 VIAL SQ SCH ×4 (06:30→22:04)
[2023-02-09 06:54] LABS: HEMATOCRIT 29.9 % (32.4-45.2); HEMOGLOBIN 9.7 GM/dL (10.7-15.3); MCH 30.4 pg (25.7-33.7); MCHC 32.5 g/dl (32.0-36.0); MEAN CELL VOLUME 93.6 fl (80-96); PLATELET COUNT 97 10^3/uL (134-434); RBC 3.19 M/mm3 (3.60-5.2); RDW 14.1 % (11.6-15.6); WHITE BLOOD COUNT 27.4 K/mm3 (4.0-10.0)
[2023-02-09 07:18] LABS: POTASSIUM 4.7 mmol/L (3.5-5.1)
[2023-02-09 07:20] LABS: MAGNESIUM 2.3 mg/dL (1.8-2.4)
[2023-02-09 07:24] LABS: CREATININE 3.5 mg/dL (0.55-1.3); PHOSPHOROUS 7.6 mg/dL (2.5-4.9)
[2023-02-09 07:57] LABS: BLOOD UREA NITROGEN 82.1 mg/dL (7-18)
[2023-02-09] MEDS: PANTOPRAZOLE SODIUM 40 MG VIAL IVPUSH SCH (09:19)
[2023-02-09] MEDS: MEROPENEM 1 GM in DEXTROSE 5%-WATER 100 ML IVPB SCH (09:20)
[2023-02-09] MEDS: AMINO ACIDS/PROTEIN HYDROLYS 30 ML LIQUID.PKT PO SCH ×3 (09:21→17:55)
[2023-02-09] MEDS: VITAMIN B COMP W-C 1 EA TABLET (NEPHRO-VITE) PO SCH (09:21)
[2023-02-09] MEDS: HYDROmorphone HCl 2 MG/ML VIAL IVPUSH PRN ×2 (14:03→22:06)
[2023-02-09] MEDS: NOREPINEPHRINE BITARTRATE/D5W 8 MG/250 ML BAG IVPB SCH (22:05)
[2023-02-10] MEDS: CHLORHEXIDINE GLUCONATE 4% CLEANSER FOR DECOLONIZATION TP SCH ×2 (01:43→22:12)
[2023-02-10] MEDS: CLINDAMYCIN 900 MG PREMIX IVPB 900 MG/50 ML BAG IVPB SCH ×2 (01:49→09:42)
[2023-02-10] MEDS: DOCUSATE SODIUM 100 MG CAPSULE (FP) PO SCH ×3 (05:25→21:58)
[2023-02-10] MEDS: INSULIN (LEVEMIR) 100 UNITS/ML UNITS SQ SCH ×2 (06:53→22:12)
[2023-02-10] MEDS: INSULIN SLIDING SCALE (NOVOLOG) 1 VIAL SQ SCH ×4 (06:53→22:12)
[2023-02-10] MEDS: NOREPINEPHRINE BITARTRATE/D5W 8 MG/250 ML BAG IVPB SCH ×2 (07:00→21:58)
[2023-02-10 07:44] LABS: HEMATOCRIT 30.7 % (32.4-45.2); MCH 30.7 pg (25.7-33.7); MCHC 32.5 g/dl (32.0-36.0); MEAN CELL VOLUME 94.4 fl (80-96); MEAN PLT VOLUME 9.6 fl (7.5-11.1); PLATELET COUNT 137 10^3/uL (134-434); RBC 3.25 M/mm3 (3.60-5.2); RDW 13.8 % (11.6-15.6); WHITE BLOOD COUNT 18.3 K/mm3 (4.0-10.0)
[2023-02-10 08:09] LABS: POTASSIUM 5.1 mmol/L (3.5-5.1)
[2023-02-10 08:11] LABS: CALCIUM 7.3 mg/dL (8.5-10.1)
[2023-02-10 08:12] LABS: ALBUMIN 1.6 g/dl (3.4-5.0); BLOOD UREA NITROGEN 91.2 mg/dL (7-18); MAGNESIUM 2.3 mg/dL (1.8-2.4)
[2023-02-10 08:15] LABS: CREATININE 3.9 mg/dL (0.55-1.3)
[2023-02-10 08:16] LABS: BILIRUBIN,TOTAL 5.7 mg/dL (0.2-1); TOT PROT 5.5 g/dl (6.4-8.2)
[2023-02-10 09:04] LABS: BILIRUBIN,DIRECT 4.6 mg/dL (0.0-0.2)
[2023-02-10 09:05] LABS: PHOSPHOROUS 8.8 mg/dL (2.5-4.9)
[2023-02-10] MEDS ORDERED: FUROSEMIDE 40 MG/4 ML INJECTABLE VIAL IVPUSH ONE (09:36)
[2023-02-10 09:41] LABS: ANISOCYTOSIS 0; MACROCYTOSIS 1+
[2023-02-10] MEDS: AMINO ACIDS/PROTEIN HYDROLYS 30 ML LIQUID.PKT PO SCH ×3 (09:41→18:01)
[2023-02-10] MEDS: VITAMIN B COMP W-C 1 EA TABLET (NEPHRO-VITE) PO SCH (09:42)
[2023-02-10] MEDS: MEROPENEM 1 GM in DEXTROSE 5%-WATER 100 ML IVPB SCH (09:42)
[2023-02-10] MEDS: PANTOPRAZOLE SODIUM 40 MG VIAL IVPUSH SCH (09:42)
[2023-02-10] MEDS: HYDROmorphone HCl 2 MG/ML VIAL IVPUSH PRN (09:43)
[2023-02-10] MEDS ORDERED: INSULIN (NOVOLOG) ASPART 100 UNITS/ML 10ML VIAL ONE ×3 (12:48→22:11)
[2023-02-10] MEDS: HEPARIN NA (PORCINE) 5,000 UNITS/ML 1ML VIAL SQ SCH ×2 (15:00→22:12)
[2023-02-11] MEDS: HYDROmorphone HCl 2 MG/ML VIAL IVPUSH PRN ×2 (00:07→09:29)
[2023-02-11] MEDS: INSULIN SLIDING SCALE (NOVOLOG) 1 VIAL SQ SCH ×4 (06:43→21:15)
[2023-02-11] MEDS: HEPARIN NA (PORCINE) 5,000 UNITS/ML 1ML VIAL SQ SCH ×4 (06:44→22:06)
[2023-02-11] MEDS: INSULIN (LEVEMIR) 100 UNITS/ML UNITS SQ SCH ×2 (06:44→21:16)
[2023-02-11] MEDS: DOCUSATE SODIUM 100 MG CAPSULE (FP) PO SCH ×3 (06:44→21:16)
[2023-02-11 08:04] LABS: CHLORIDE 96 mmol/L (98-107); POTASSIUM 5.3 mmol/L (3.5-5.1); SODIUM 133 mmol/L (136-145)
[2023-02-11 08:11] LABS: INR 1.39 (0.83-1.09); PROTHROMBIN TIME (PATIENT) 16.1 SEC (9.7-13.0)
[2023-02-11 08:17] LABS: ALBUMIN 1.4 g/dl (3.4-5.0); ANION GAP 14 MMOL/L (8-16); CALCIUM 7.2 mg/dL (8.5-10.1); CO2 23 mmol/L (21-32)
[2023-02-11 08:18] LABS: BLOOD UREA NITROGEN 101.6 mg/dL (7-18); GLUCOSE,RANDOM 233 mg/dL (74-106); MAGNESIUM 2.3 mg/dL (1.8-2.4)
[2023-02-11 08:20] LABS: SGOT/AST 61 U/L (15-37); SGPT/ALT 57 U/L (13-61)
[2023-02-11 08:21] LABS: BILIRUBIN,TOTAL 4.8 mg/dL (0.2-1); TOT PROT 5.2 g/dl (6.4-8.2)
[2023-02-11 08:27] LABS: BASO % 0.2 % (0-2.0); EOS % 0.4 % (0-4.5); HEMATOCRIT 26.7 % (32.4-45.2); HEMOGLOBIN 9.1 GM/dL (10.7-15.3); LYMPH % 3.6 % (8-40); MCH 31.6 pg (25.7-33.7); MEAN CELL VOLUME 92.9 fl (80-96); MEAN PLT VOLUME 9.5 fl (7.5-11.1); NEUT % 86.8 % (42.8-82.8); PLATELET COUNT 137 10^3/uL (134-434); RBC 2.87 M/mm3 (3.60-5.2); RDW 14.5 % (11.6-15.6); WHITE BLOOD COUNT 12.4 K/mm3 (4.0-10.0)
[2023-02-11] MEDS: AMINO ACIDS/PROTEIN HYDROLYS 30 ML LIQUID.PKT PO SCH ×3 (08:34→17:11)
[2023-02-11 08:43] LABS: ALK PHOS 306 U/L (45-117)
[2023-02-11 08:45] LABS: PHOSPHOROUS 9.1 mg/dL (2.5-4.9)
[2023-02-11] MEDS: MEROPENEM 1 GM in DEXTROSE 5%-WATER 100 ML IVPB SCH (09:33)
[2023-02-11] MEDS: PANTOPRAZOLE SODIUM 40 MG VIAL IVPUSH SCH (09:33)
[2023-02-11] MEDS: VITAMIN B COMP W-C 1 EA TABLET (NEPHRO-VITE) PO SCH (09:34)
[2023-02-11] MEDS: COLLAGENASE CLOSTRIDIUM HIST. 30 GRAMS TUBE TP SCH (09:39)
[2023-02-11] MEDS: SODIUM HYPOCHLORITE 0.25%- 473 ML BULK BOTTLE TP SCH (09:39)
[2023-02-11] MEDS ORDERED: PEG 3350/NA SULF BICARB CL/KCL 4000 ML SOLN.RECON PO ONE (10:39)
[2023-02-11] MEDS ORDERED: INSULIN (NOVOLOG) ASPART 100 UNITS/ML 10ML VIAL ONE ×3 (11:43→21:13)
[2023-02-11] MEDS: INSULIN (NOVOLOG) ASPART 100 UNITS/ML 10ML VIAL SQ SCH ×2 (11:49→17:11)
[2023-02-11] MEDS ORDERED: BISACODYL 5 MG TABLET.DR (FP) PO ONE (12:00)
[2023-02-11] MEDS: ALBUMIN HUMAN 25% 12.5 GM/50 ML VIAL IV SCH ×4 (12:30→16:00)
[2023-02-11] MEDS: NOREPINEPHRINE BITARTRATE/D5W 8 MG/250 ML BAG IVPB SCH (12:45)
[2023-02-11] MEDS ORDERED: metroNIDAZOLE 500 MG TABLET PO SCH (13:00)
[2023-02-11] MEDS ORDERED: SODIUM CHLORIDE 250 ML IV PRN (14:23)
[2023-02-11] MEDS: oxyCODONE HCL 5 MG TABLET PO PRN ×2 (14:41→20:45)
[2023-02-11] MEDS: NEOMYCIN SO4 500 MG TABLET PO SCH ×3 (15:00→22:11)
[2023-02-11] MEDS: CHLORHEXIDINE GLUCONATE 4% CLEANSER FOR DECOLONIZATION TP SCH (21:15)
[2023-02-11] MEDS: SODIUM ZIRCONIUM CYCLOSILICATE (LOKELMA) 5 GM PACKET PO SCH (21:16)
[2023-02-12] MEDS: DOCUSATE SODIUM 100 MG CAPSULE (FP) PO SCH ×3 (06:50→23:10)
[2023-02-12] MEDS: HEPARIN NA (PORCINE) 5,000 UNITS/ML 1ML VIAL SQ SCH (06:50)
[2023-02-12] MEDS: INSULIN (LEVEMIR) 100 UNITS/ML UNITS SQ SCH ×2 (06:51→23:10)
[2023-02-12] MEDS: INSULIN SLIDING SCALE (NOVOLOG) 1 VIAL SQ SCH ×5 (06:52→23:12)
[2023-02-12] MEDS: INSULIN (NOVOLOG) ASPART 100 UNITS/ML 10ML VIAL SQ SCH (06:52)
[2023-02-12 07:26] LABS: BASO % 0.3 % (0-2.0); EOS % 0.5 % (0-4.5); HEMOGLOBIN 8.7 GM/dL (10.7-15.3); LYMPH % 4.3 % (8-40); MCH 30.5 pg (25.7-33.7); MCHC 32.1 g/dl (32.0-36.0); MEAN CELL VOLUME 95.1 fl (80-96); MEAN PLT VOLUME 9.9 fl (7.5-11.1); MONO % 13.5 % (3.8-10.2); NEUT % 81.4 % (42.8-82.8); PLATELET COUNT 126 10^3/uL (134-434); RBC 2.84 M/mm3 (3.60-5.2); RDW 14.8 % (11.6-15.6)
[2023-02-12 07:36] LABS: POTASSIUM 4.1 mmol/L (3.5-5.1)
[2023-02-12 07:38] LABS: CALCIUM 7.1 mg/dL (8.5-10.1)
[2023-02-12 07:39] LABS: ALBUMIN 1.6 g/dl (3.4-5.0); BLOOD UREA NITROGEN 77.8 mg/dL (7-18)
[2023-02-12 07:42] LABS: CREATININE 3.5 mg/dL (0.55-1.3)
[2023-02-12 07:44] LABS: TOT PROT 5.2 g/dl (6.4-8.2)
[2023-02-12 07:46] LABS: PHOSPHOROUS 8.7 mg/dL (2.5-4.9)
[2023-02-12 07:47] LABS: BILIRUBIN,TOTAL 5.4 mg/dL (0.2-1)
[2023-02-12 08:05] LABS: INR 1.38 (0.83-1.09)
[2023-02-12] MEDS ORDERED: FUROSEMIDE 40 MG/4 ML INJECTABLE VIAL IVPUSH ONE (09:08)
[2023-02-12] MEDS: oxyCODONE HCL 5 MG TABLET PO PRN ×2 (09:52→15:26)
[2023-02-12] MEDS: MEROPENEM 1 GM in DEXTROSE 5%-WATER 100 ML IVPB SCH (09:53)
[2023-02-12] MEDS: VITAMIN B COMP W-C 1 EA TABLET (NEPHRO-VITE) PO SCH (09:53)
[2023-02-12] MEDS: AMINO ACIDS/PROTEIN HYDROLYS 30 ML LIQUID.PKT PO SCH ×3 (09:53→17:00)
[2023-02-12] MEDS: SODIUM ZIRCONIUM CYCLOSILICATE (LOKELMA) 5 GM PACKET PO SCH (09:55)
[2023-02-12] MEDS: PANTOPRAZOLE SODIUM 40 MG VIAL IVPUSH SCH (09:56)
[2023-02-12] MEDS: COLLAGENASE CLOSTRIDIUM HIST. 30 GRAMS TUBE TP SCH (10:07)
[2023-02-12] MEDS: SODIUM HYPOCHLORITE 0.25%- 473 ML BULK BOTTLE TP SCH (10:07)
[2023-02-12] MEDS: NOREPINEPHRINE BITARTRATE/D5W 8 MG/250 ML BAG IVPB SCH ×2 (10:08→13:44)
[2023-02-12] MEDS ORDERED: MIDAZOLAM HCL 2 MG/2 ML SINGLE DOSE VIAL ONE ×2 (16:11→17:47)
[2023-02-12] MEDS ORDERED: PROPOFOL 20 ML ONE (16:11)
[2023-02-12] MEDS ORDERED: LIDOCAINE HCL 4% PRESERVE-FREE 5 ML AMP ONE (16:23)
[2023-02-12] MEDS ORDERED: HEPARIN NA (PORCINE) 5,000 UNITS/ML 1ML VIAL ONE (16:28)
[2023-02-12] MEDS ORDERED: ROCURONIUM BROMIDE 50 MG/5 ML SYRINGE ONE ×2 (16:37→18:02)
[2023-02-12] MEDS ORDERED: KETAMINE HCL 200 MG/20 ML VIAL ONE (17:06)
[2023-02-12] MEDS ORDERED: ALBUMIN HUMAN 5% 500 ML IV SOLUTION IV ONE (18:02)
[2023-02-12] MEDS ORDERED: LACTATED RINGERS SOLUTION 1,000 ML IV SCH (21:15)
[2023-02-12] MEDS ORDERED: SODIUM CHLORIDE 1,000 ML IV SCH ×2 (21:45→22:59)
[2023-02-12] MEDS ORDERED: ARTIFICIAL TEARS (POLYVINYL ALCOHOL) OPTH DROPS OU PRN (22:06)
[2023-02-12] MEDS ORDERED: hydrALAZINE HCL 20 MG/ML VIAL IVPUSH PRN (22:06)
[2023-02-12] MEDS: CHLORHEXIDINE GLUCONATE 4% CLEANSER FOR DECOLONIZATION TP SCH (23:10)
[2023-02-13 00:38] LABS: BASO % 0.1 % (0-2.0); EOS % 0.2 % (0-4.5); HEMATOCRIT 23.4 % (32.4-45.2); HEMOGLOBIN 7.8 GM/dL (10.7-15.3); LYMPH % 3.7 % (8-40); MCH 31.3 pg (25.7-33.7); MCHC 33.4 g/dl (32.0-36.0); MEAN CELL VOLUME 93.7 fl (80-96); MEAN PLT VOLUME 8.9 fl (7.5-11.1); MONO % 9.8 % (3.8-10.2); NEUT % 86.2 % (42.8-82.8); PLATELET COUNT 101 10^3/uL (134-434); RDW 14.4 % (11.6-15.6); WHITE BLOOD COUNT 11.7 K/mm3 (4.0-10.0)
[2023-02-13] MEDS: oxyCODONE HCL 5 MG TABLET PO PRN ×3 (03:01→21:37)
[2023-02-13] MEDS ORDERED: FUROSEMIDE 40 MG/4 ML INJECTABLE VIAL IVPUSH SCH (06:00)
[2023-02-13] MEDS: HEPARIN NA (PORCINE) 5,000 UNITS/ML 1ML VIAL SQ SCH ×3 (06:16→21:36)
[2023-02-13] MEDS: INSULIN (LEVEMIR) 100 UNITS/ML UNITS SQ SCH ×2 (06:22→21:44)
[2023-02-13] MEDS: INSULIN SLIDING SCALE (NOVOLOG) 1 VIAL SQ SCH ×4 (06:33→21:43)
[2023-02-13] MEDS ORDERED: INSULIN SLIDING SCALE (NOVOLOG) 1 VIAL SQ SCH (07:00)
[2023-02-13] MEDS ORDERED: INSULIN (NOVOLOG) ASPART 100 UNITS/ML 10ML VIAL ONE ×2 (07:11→11:11)
[2023-02-13 07:29] LABS: BASO % 0.4 % (0-2.0); EOS % 0.4 % (0-4.5); HEMATOCRIT 25.3 % (32.4-45.2); HEMOGLOBIN 8.4 GM/dL (10.7-15.3); LYMPH % 4.4 % (8-40); MCH 31.1 pg (25.7-33.7); MCHC 33.2 g/dl (32.0-36.0); MEAN CELL VOLUME 93.7 fl (80-96); MEAN PLT VOLUME 9.9 fl (7.5-11.1); MONO % 11.2 % (3.8-10.2); NEUT % 83.6 % (42.8-82.8); PLATELET COUNT 107 10^3/uL (134-434); RDW 14.6 % (11.6-15.6); WHITE BLOOD COUNT 11.1 K/mm3 (4.0-10.0)
[2023-02-13 07:43] LABS: CHLORIDE 100 mmol/L (98-107); SODIUM 138 mmol/L (136-145)
[2023-02-13 07:52] LABS: ALBUMIN 1.5 g/dl (3.4-5.0); ANION GAP 12 MMOL/L (8-16); BLOOD UREA NITROGEN 91.2 mg/dL (7-18); CO2 26 mmol/L (21-32); GLUCOSE,RANDOM 169 mg/dL (74-106)
[2023-02-13 07:54] LABS: SGPT/ALT 46 U/L (13-61)
[2023-02-13 07:55] LABS: CREATININE 3.9 mg/dL (0.55-1.3); SGOT/AST 49 U/L (15-37)
[2023-02-13 07:56] LABS: BILIRUBIN,TOTAL 5.6 mg/dL (0.2-1); TOT PROT 4.3 g/dl (6.4-8.2)
[2023-02-13 08:30] LABS: ALK PHOS 246 U/L (45-117); PHOSPHOROUS 9.5 mg/dL (2.5-4.9)
[2023-02-13] MEDS: VITAMIN B COMP W-C 1 EA TABLET (NEPHRO-VITE) PO SCH (09:13)
[2023-02-13] MEDS: AMINO ACIDS/PROTEIN HYDROLYS 30 ML LIQUID.PKT PO SCH ×3 (09:13→17:44)
[2023-02-13] MEDS: SODIUM ZIRCONIUM CYCLOSILICATE (LOKELMA) 5 GM PACKET PO SCH ×2 (09:15→21:36)
[2023-02-13] MEDS: PANTOPRAZOLE SODIUM 40 MG VIAL IVPUSH SCH (09:15)
[2023-02-13] MEDS: COLLAGENASE CLOSTRIDIUM HIST. 30 GRAMS TUBE TP SCH (09:58)
[2023-02-13] MEDS ORDERED: SODIUM ZIRCONIUM CYCLOSILICATE (LOKELMA) 5 GM PACKET PO SCH (10:00)
[2023-02-13] MEDS: SEVELAMER CARBONATE 800 MG TAB (FP) PO SCH ×2 (11:12→17:44)
[2023-02-13 11:59] LABS: BILIRUBIN,DIRECT 4.3 mg/dL (0.0-0.2)
[2023-02-13] MEDS: MIDODRINE HCL 5 MG TABLET PO SCH ×2 (13:29→20:48)
[2023-02-13] MEDS: INSULIN (NOVOLOG) ASPART 100 UNITS/ML 10ML VIAL SQ SCH (17:43)
[2023-02-13] MEDS: MEROPENEM 1 GM in DEXTROSE 5%-WATER 100 ML IVPB SCH (17:44)
[2023-02-13] MEDS ORDERED: SODIUM CHLORIDE 0.9% 500 ML INFUS.BAG IV ONE (20:43)
[2023-02-13] MEDS: CHLORHEXIDINE GLUCONATE 4% CLEANSER FOR DECOLONIZATION TP SCH (21:16)
[2023-02-14] MEDS: MIDODRINE HCL 5 MG TABLET PO SCH ×3 (03:41→20:49)
[2023-02-14] MEDS: HEPARIN NA (PORCINE) 5,000 UNITS/ML 1ML VIAL SQ SCH ×3 (05:41→21:02)
[2023-02-14] MEDS ORDERED: FUROSEMIDE 40 MG/4 ML INJECTABLE VIAL IVPUSH SCH ×2 (06:00)
[2023-02-14] MEDS: INSULIN (LEVEMIR) 100 UNITS/ML UNITS SQ SCH ×2 (06:06→21:05)
[2023-02-14] MEDS: INSULIN SLIDING SCALE (NOVOLOG) 1 VIAL SQ SCH ×4 (06:07→21:05)
[2023-02-14] MEDS: INSULIN (NOVOLOG) ASPART 100 UNITS/ML 10ML VIAL SQ SCH ×3 (06:08→15:47)
[2023-02-14] MEDS: oxyCODONE HCL 5 MG TABLET PO PRN ×3 (06:49→21:01)
[2023-02-14 07:35] LABS: HEMATOCRIT 25.1 % (32.4-45.2); HEMOGLOBIN 8.3 GM/dL (10.7-15.3); MCH 31.1 pg (25.7-33.7); MCHC 33.2 g/dl (32.0-36.0); MEAN CELL VOLUME 93.6 fl (80-96); MEAN PLT VOLUME 9.4 fl (7.5-11.1); PLATELET COUNT 131 10^3/uL (134-434); RBC 2.68 M/mm3 (3.60-5.2); RDW 16.1 % (11.6-15.6); WHITE BLOOD COUNT 11.9 K/mm3 (4.0-10.0)
[2023-02-14 07:53] LABS: CHLORIDE 97 mmol/L (98-107); SODIUM 135 mmol/L (136-145)
[2023-02-14 08:12] LABS: BLOOD UREA NITROGEN 103.8 mg/dL (7-18); GLUCOSE,RANDOM 171 mg/dL (74-106)
[2023-02-14 08:13] LABS: ALBUMIN 1.4 g/dl (3.4-5.0); ANION GAP 14 MMOL/L (8-16); CO2 24 mmol/L (21-32); MAGNESIUM 1.9 mg/dL (1.8-2.4)
[2023-02-14 08:14] LABS: BILIRUBIN,DIRECT 3.8 mg/dL (0.0-0.2)
[2023-02-14 08:15] LABS: SGOT/AST 56 U/L (15-37)
[2023-02-14 08:16] LABS: CREATININE 4.6 mg/dL (0.55-1.3); TOT PROT 4.2 g/dl (6.4-8.2)
[2023-02-14 08:17] LABS: ALK PHOS 230 U/L (45-117); SGPT/ALT 42 U/L (13-61)
[2023-02-14 08:58] LABS: CALCIUM 6.6 mg/dL (8.5-10.1); PHOSPHOROUS 9.8 mg/dL (2.5-4.9)
[2023-02-14] MEDS: AMINO ACIDS/PROTEIN HYDROLYS 30 ML LIQUID.PKT PO SCH ×5 (09:35→17:58)
[2023-02-14] MEDS: SEVELAMER CARBONATE 800 MG TAB (FP) PO SCH ×3 (09:35→17:34)
[2023-02-14] MEDS: VITAMIN B COMP W-C 1 EA TABLET (NEPHRO-VITE) PO SCH (09:35)
[2023-02-14] MEDS: PANTOPRAZOLE SODIUM 40 MG VIAL IVPUSH SCH (09:35)
[2023-02-14] MEDS: SODIUM ZIRCONIUM CYCLOSILICATE (LOKELMA) 5 GM PACKET PO SCH ×2 (09:36→21:02)
[2023-02-14] MEDS: COLLAGENASE CLOSTRIDIUM HIST. 30 GRAMS TUBE TP SCH (11:29)
[2023-02-14] MEDS: FUROSEMIDE 40 MG/4 ML INJECTABLE VIAL IVPUSH SCH (13:24)
[2023-02-14] MEDS: MEROPENEM 1 GM in DEXTROSE 5%-WATER 100 ML IVPB SCH (17:00)
[2023-02-14] MEDS: CHLORHEXIDINE GLUCONATE 4% CLEANSER FOR DECOLONIZATION TP SCH (21:02)
[2023-02-14] MEDS ORDERED: FUROSEMIDE 100 MG/10 ML INJECTABLE VIAL IVPB ONE (22:00)
[2023-02-15] MEDS: MIDODRINE HCL 5 MG TABLET PO SCH ×3 (03:46→21:11)
[2023-02-15] MEDS: oxyCODONE HCL 5 MG TABLET PO PRN ×2 (05:25→13:16)
[2023-02-15] MEDS: FUROSEMIDE 40 MG/4 ML INJECTABLE VIAL IVPUSH SCH ×2 (05:25→13:19)
[2023-02-15] MEDS: HEPARIN NA (PORCINE) 5,000 UNITS/ML 1ML VIAL SQ SCH ×3 (05:25→21:12)
[2023-02-15] MEDS: INSULIN (LEVEMIR) 100 UNITS/ML UNITS SQ SCH ×2 (06:07→21:28)
[2023-02-15] MEDS: INSULIN SLIDING SCALE (NOVOLOG) 1 VIAL SQ SCH ×4 (06:08→21:30)
[2023-02-15] MEDS: INSULIN (NOVOLOG) ASPART 100 UNITS/ML 10ML VIAL SQ SCH ×3 (06:09→17:42)
[2023-02-15] MEDS ORDERED: diphenhydrAMINE HCL 25 MG CAPSULE (FP) PO ONE ×2 (06:11→22:25)
[2023-02-15 08:20] LABS: CHLORIDE 97 mmol/L (98-107); POTASSIUM 5.2 mmol/L (3.5-5.1); SODIUM 131 mmol/L (136-145)
[2023-02-15 08:24] LABS: ALBUMIN 1.3 g/dl (3.4-5.0); ANION GAP 14 MMOL/L (8-16); CO2 21 mmol/L (21-32); GLUCOSE,RANDOM 169 mg/dL (74-106)
[2023-02-15 08:26] LABS: BILIRUBIN,DIRECT 4.5 mg/dL (0.0-0.2)
[2023-02-15 08:27] LABS: CREATININE 5.5 mg/dL (0.55-1.3); SGOT/AST 76 U/L (15-37); SGPT/ALT 42 U/L (13-61)
[2023-02-15 08:28] LABS: BILIRUBIN,TOTAL 5.5 mg/dL (0.2-1); TOT PROT 4.2 g/dl (6.4-8.2)
[2023-02-15 08:29] LABS: ALK PHOS 243 U/L (45-117)
[2023-02-15 08:35] LABS: BLOOD UREA NITROGEN 107.8 mg/dL (7-18); CALCIUM 6.7 mg/dL (8.5-10.1)
[2023-02-15] MEDS: VITAMIN B COMP W-C 1 EA TABLET (NEPHRO-VITE) PO SCH (10:27)
[2023-02-15] MEDS: PANTOPRAZOLE SODIUM 40 MG VIAL IVPUSH SCH (10:27)
[2023-02-15] MEDS: AMINO ACIDS/PROTEIN HYDROLYS 30 ML LIQUID.PKT PO SCH ×3 (10:27→17:39)
[2023-02-15] MEDS: SEVELAMER CARBONATE 800 MG TAB (FP) PO SCH ×3 (10:27→17:40)
[2023-02-15] MEDS: SODIUM ZIRCONIUM CYCLOSILICATE (LOKELMA) 5 GM PACKET PO SCH ×2 (10:27→21:12)
[2023-02-15] MEDS: COLLAGENASE CLOSTRIDIUM HIST. 30 GRAMS TUBE TP SCH (11:45)
[2023-02-15] MEDS ORDERED: fentaNYL CITRATE 250 MCG/5 ML VIAL ONE (12:25)
[2023-02-15] MEDS ORDERED: ARTIFICIAL TEARS (POLYVINYL ALCOHOL) OPTH DROPS OU PRN (14:06)
[2023-02-15] MEDS ORDERED: fentaNYL CITRATE/PF 1,000 MCG/20 ML AMPUL IVPUSH ONE (14:15)
[2023-02-15] MEDS ORDERED: SODIUM CHLORIDE 250 ML IV PRN (14:21)
[2023-02-15] MEDS ORDERED: NOREPINEPHRINE BITARTRATE 4 MG/4 ML ML IV ONE (14:48)
[2023-02-15] MEDS ORDERED: NOREPINEPHRINE BITARTRATE 16,000 MCG in SODIUM CHLORIDE 484 ML IV SCH (15:00)
[2023-02-15] MEDS: NOREPINEPHRINE 0.9 % NACL 8 MG/250 ML BAG IVPB SCH (15:15)
[2023-02-15] MEDS ORDERED: MEROPENEM 1 GM in DEXTROSE 5%-WATER 100 ML IVPB SCH (18:00)
[2023-02-15] MEDS ORDERED: MEROPENEM 1 GM in DEXTROSE 5%-WATER 100 ML IVPB ONE (18:00)
[2023-02-15] MEDS: CHLORHEXIDINE GLUCONATE 4% CLEANSER FOR DECOLONIZATION TP SCH (21:12)
[2023-02-15] MEDS: NYSTATIN POWDER 100,000 UNITS/GM - 15 GM TOPICAL POWDER TP SCH (21:33)
[2023-02-15] MEDS: ZINC OXIDE 20% TOPICAL OINTMENT 30 GM TUBE TP SCH (21:35)
[2023-02-16] MEDS: CALCIUM GLUCONATE IN NACL 1 GM/50 ML BAG IVPB SCH ×2 (00:17→01:20)
[2023-02-16] MEDS: VASOPRESSIN 40 UNITS/100 ML BAG IV SCH ×2 (00:58→17:06)
[2023-02-16] MEDS: MIDODRINE HCL 5 MG TABLET PO SCH ×3 (04:50→21:30)
[2023-02-16] MEDS: HEPARIN NA (PORCINE) 5,000 UNITS/ML 1ML VIAL SQ SCH ×3 (05:31→21:31)
[2023-02-16] MEDS: FUROSEMIDE 40 MG/4 ML INJECTABLE VIAL IVPUSH SCH ×2 (05:31→13:39)
[2023-02-16] MEDS: oxyCODONE HCL 5 MG TABLET PO PRN ×3 (05:32→21:37)
[2023-02-16] MEDS ORDERED: diphenhydrAMINE HCL 25 MG CAPSULE (FP) PO ONE (06:08)
[2023-02-16] MEDS: INSULIN SLIDING SCALE (NOVOLOG) 1 VIAL SQ SCH ×4 (06:40→21:35)
[2023-02-16] MEDS: INSULIN (LEVEMIR) 100 UNITS/ML UNITS SQ SCH ×2 (06:40→21:32)
[2023-02-16] MEDS: INSULIN (NOVOLOG) ASPART 100 UNITS/ML 10ML VIAL SQ SCH ×3 (06:42→17:54)
[2023-02-16] MEDS ORDERED: INSULIN (NOVOLOG) ASPART 100 UNITS/ML 10ML VIAL ONE (06:46)
[2023-02-16] MEDS: SEVELAMER CARBONATE 800 MG TAB (FP) PO SCH ×3 (07:38→16:41)
[2023-02-16] MEDS: AMINO ACIDS/PROTEIN HYDROLYS 30 ML LIQUID.PKT PO SCH ×3 (07:38→16:42)
[2023-02-16] MEDS: NOREPINEPHRINE 0.9 % NACL 8 MG/250 ML BAG IVPB SCH ×2 (07:42→15:52)
[2023-02-16 07:45] LABS: BASO % 0.6 % (0-2.0); EOS % 0.9 % (0-4.5); HEMATOCRIT 25.9 % (32.4-45.2); HEMOGLOBIN 8.5 GM/dL (10.7-15.3); LYMPH % 5.7 % (8-40); MCH 31.6 pg (25.7-33.7); MCHC 32.9 g/dl (32.0-36.0); MEAN CELL VOLUME 95.8 fl (80-96); MEAN PLT VOLUME 8.9 fl (7.5-11.1); MONO % 12.4 % (3.8-10.2); NEUT % 80.4 % (42.8-82.8); PLATELET COUNT 136 10^3/uL (134-434); RDW 17.5 % (11.6-15.6); WHITE BLOOD COUNT 11.5 K/mm3 (4.0-10.0)
[2023-02-16 08:00] LABS: POTASSIUM 4.5 mmol/L (3.5-5.1)
[2023-02-16 08:10] LABS: CALCIUM 7.6 mg/dL (8.5-10.1)
[2023-02-16 08:11] LABS: MAGNESIUM 1.9 mg/dL (1.8-2.4)
[2023-02-16 08:14] LABS: CREATININE 4.4 mg/dL (0.55-1.3)
[2023-02-16 08:15] LABS: TOT PROT 4.6 g/dl (6.4-8.2)
[2023-02-16 08:17] LABS: BILIRUBIN,TOTAL 6.3 mg/dL (0.2-1)
[2023-02-16 08:21] LABS: ALBUMIN 1.8 g/dl (3.4-5.0); BLOOD UREA NITROGEN 78.6 mg/dL (7-18)
[2023-02-16] MEDS: COLLAGENASE CLOSTRIDIUM HIST. 30 GRAMS TUBE TP SCH (10:30)
[2023-02-16] MEDS: PANTOPRAZOLE SODIUM 40 MG VIAL IVPUSH SCH (10:30)
[2023-02-16] MEDS: SODIUM ZIRCONIUM CYCLOSILICATE (LOKELMA) 5 GM PACKET PO SCH ×2 (10:30→21:34)
[2023-02-16] MEDS: VITAMIN B COMP W-C 1 EA TABLET (NEPHRO-VITE) PO SCH (10:30)
[2023-02-16] MEDS: NYSTATIN POWDER 100,000 UNITS/GM - 15 GM TOPICAL POWDER TP SCH ×2 (10:30→21:29)
[2023-02-16] MEDS: ZINC OXIDE 20% TOPICAL OINTMENT 30 GM TUBE TP SCH ×2 (10:31→21:29)
[2023-02-16] MEDS: TRIAMCINOLONE ACET 0.025% OINTMENT 15 GM TUBE TP SCH ×2 (10:33→21:28)
[2023-02-16] MEDS ORDERED: VANCOMYCIN/WATER 2 GRAMS 2,000 MG/400 ML PIGGYBACK IVPB ONE (11:00)
[2023-02-16] MEDS: CHLORHEXIDINE GLUCONATE 4% CLEANSER FOR DECOLONIZATION TP SCH (21:32)
[2023-02-17] MEDS: VASOPRESSIN 40 UNITS/100 ML BAG IV SCH ×2 (00:15→16:58)
[2023-02-17] MEDS: HEPARIN NA (PORCINE) 5,000 UNITS/ML 1ML VIAL SQ SCH ×3 (05:09→21:35)
[2023-02-17] MEDS: MIDODRINE HCL 5 MG TABLET PO SCH ×3 (05:09→21:39)
[2023-02-17] MEDS: FUROSEMIDE 40 MG/4 ML INJECTABLE VIAL IVPUSH SCH ×2 (05:15→13:22)
[2023-02-17] MEDS: INSULIN (LEVEMIR) 100 UNITS/ML UNITS SQ SCH ×2 (06:36→21:38)
[2023-02-17] MEDS: INSULIN SLIDING SCALE (NOVOLOG) 1 VIAL SQ SCH ×4 (06:37→21:36)
[2023-02-17] MEDS: INSULIN (NOVOLOG) ASPART 100 UNITS/ML 10ML VIAL SQ SCH ×3 (06:38→16:54)
[2023-02-17] MEDS: oxyCODONE HCL 5 MG TABLET PO PRN ×2 (06:38→21:45)
[2023-02-17 07:18] LABS: BASO % 0.4 % (0-2.0); EOS % 1.9 % (0-4.5); HEMATOCRIT 24.7 % (32.4-45.2); HEMOGLOBIN 8.1 GM/dL (10.7-15.3); LYMPH % 6.4 % (8-40); MCH 32.1 pg (25.7-33.7); MCHC 32.8 g/dl (32.0-36.0); MEAN PLT VOLUME 9.4 fl (7.5-11.1); MONO % 13.4 % (3.8-10.2); NEUT % 77.9 % (42.8-82.8); PLATELET COUNT 118 10^3/uL (134-434); RBC 2.52 M/mm3 (3.60-5.2); RDW 17.2 % (11.6-15.6); WHITE BLOOD COUNT 8.2 K/mm3 (4.0-10.0)
[2023-02-17 07:23] LABS: POTASSIUM 4.3 mmol/L (3.5-5.1)
[2023-02-17 07:26] LABS: CALCIUM 7.5 mg/dL (8.5-10.1)
[2023-02-17 07:27] LABS: ALBUMIN 1.5 g/dl (3.4-5.0); BLOOD UREA NITROGEN 88.3 mg/dL (7-18); MAGNESIUM 1.9 mg/dL (1.8-2.4)
[2023-02-17 07:31] LABS: BILIRUBIN,TOTAL 5.5 mg/dL (0.2-1)
[2023-02-17 07:32] LABS: TOT PROT 4.5 g/dl (6.4-8.2)
[2023-02-17 07:40] LABS: PHOSPHOROUS 8.8 mg/dL (2.5-4.9)
[2023-02-17] MEDS: SODIUM ZIRCONIUM CYCLOSILICATE (LOKELMA) 5 GM PACKET PO SCH ×2 (09:28→21:39)
[2023-02-17] MEDS: TRIAMCINOLONE ACET 0.025% OINTMENT 15 GM TUBE TP SCH ×2 (09:28→21:53)
[2023-02-17] MEDS: VITAMIN B COMP W-C 1 EA TABLET (NEPHRO-VITE) PO SCH (09:28)
[2023-02-17] MEDS: SEVELAMER CARBONATE 800 MG TAB (FP) PO SCH ×3 (09:28→16:57)
[2023-02-17] MEDS: PANTOPRAZOLE SODIUM 40 MG VIAL IVPUSH SCH (09:28)
[2023-02-17] MEDS: AMINO ACIDS/PROTEIN HYDROLYS 30 ML LIQUID.PKT PO SCH ×3 (09:28→16:58)
[2023-02-17] MEDS: ZINC OXIDE 20% TOPICAL OINTMENT 30 GM TUBE TP SCH ×2 (09:29→21:59)
[2023-02-17] MEDS: COLLAGENASE CLOSTRIDIUM HIST. 30 GRAMS TUBE TP SCH (09:29)
[2023-02-17] MEDS: NYSTATIN POWDER 100,000 UNITS/GM - 15 GM TOPICAL POWDER TP SCH ×2 (09:29→21:52)
[2023-02-17] MEDS ORDERED: INSULIN (NOVOLOG) ASPART 100 UNITS/ML 10ML VIAL ONE (10:22)
[2023-02-17] MEDS ORDERED: SODIUM CHLORIDE 250 ML IV PRN (14:26)
[2023-02-17] MEDS: NOREPINEPHRINE 0.9 % NACL 8 MG/250 ML BAG IVPB SCH (17:36)
[2023-02-17] MEDS ORDERED: ACETAMINOPHEN 1000 MG/100 ML BAG IVPB ONE (19:18)
[2023-02-17 21:37] LABS: HEMOGLOBIN 8.5 GM/dL (10.7-15.3); MCH 31.7 pg (25.7-33.7); MCHC 32.7 g/dl (32.0-36.0); MEAN CELL VOLUME 96.7 fl (80-96); PLATELET COUNT 119 10^3/uL (134-434); RBC 2.69 M/mm3 (3.60-5.2); RDW 18.3 % (11.6-15.6); WHITE BLOOD COUNT 8.2 K/mm3 (4.0-10.0)
[2023-02-17] MEDS: CHLORHEXIDINE GLUCONATE 4% CLEANSER FOR DECOLONIZATION TP SCH (21:39)
[2023-02-17 22:01] LABS: POTASSIUM 4.3 mmol/L (3.5-5.1)
[2023-02-17 22:02] LABS: BLOOD UREA NITROGEN 94.4 mg/dL (7-18); CALCIUM 7.4 mg/dL (8.5-10.1)
[2023-02-17 22:06] LABS: CREATININE 5.5 mg/dL (0.55-1.3)
[2023-02-18] MEDS: MIDODRINE HCL 5 MG TABLET PO SCH ×3 (04:17→20:00)
[2023-02-18] MEDS: HEPARIN NA (PORCINE) 5,000 UNITS/ML 1ML VIAL SQ SCH ×3 (06:15→21:49)
[2023-02-18] MEDS: FUROSEMIDE 40 MG/4 ML INJECTABLE VIAL IVPUSH SCH ×2 (06:16→15:36)
[2023-02-18] MEDS: INSULIN (NOVOLOG) ASPART 100 UNITS/ML 10ML VIAL SQ SCH ×3 (06:54→17:42)
[2023-02-18] MEDS: INSULIN SLIDING SCALE (NOVOLOG) 1 VIAL SQ SCH ×4 (06:54→22:00)
[2023-02-18] MEDS: INSULIN (LEVEMIR) 100 UNITS/ML UNITS SQ SCH ×2 (06:57→21:50)
[2023-02-18] MEDS: VASOPRESSIN 40 UNITS/100 ML BAG IV SCH ×2 (06:58→23:57)
[2023-02-18 07:24] LABS: HEMATOCRIT 25.2 % (32.4-45.2); HEMOGLOBIN 8.2 GM/dL (10.7-15.3); MCH 31.7 pg (25.7-33.7); MCHC 32.4 g/dl (32.0-36.0); MEAN CELL VOLUME 97.9 fl (80-96); MEAN PLT VOLUME 9.2 fl (7.5-11.1); PLATELET COUNT 107 10^3/uL (134-434); RBC 2.57 M/mm3 (3.60-5.2); RDW 19.4 % (11.6-15.6); WHITE BLOOD COUNT 7.2 K/mm3 (4.0-10.0)
[2023-02-18 07:48] LABS: POTASSIUM 4.3 mmol/L (3.5-5.1)
[2023-02-18 07:55] LABS: BLOOD UREA NITROGEN 101.2 mg/dL (7-18); CALCIUM 7.5 mg/dL (8.5-10.1)
[2023-02-18 07:57] LABS: ALBUMIN 1.4 g/dl (3.4-5.0)
[2023-02-18 07:58] LABS: CREATININE 5.6 mg/dL (0.55-1.3)
[2023-02-18 08:00] LABS: BILIRUBIN,TOTAL 4.6 mg/dL (0.2-1); TOT PROT 4.4 g/dl (6.4-8.2)
[2023-02-18] MEDS: ALBUMIN HUMAN 25% 12.5 GM/50 ML VIAL IV SCH ×4 (09:10→12:16)
[2023-02-18 09:19] LABS: ANISOCYTOSIS 0; MACROCYTOSIS 1+
[2023-02-18] MEDS: NOREPINEPHRINE 0.9 % NACL 8 MG/250 ML BAG IVPB SCH (09:45)
[2023-02-18] MEDS: SODIUM ZIRCONIUM CYCLOSILICATE (LOKELMA) 5 GM PACKET PO SCH ×3 (10:50→21:59)
[2023-02-18] MEDS: SEVELAMER CARBONATE 800 MG TAB (FP) PO SCH ×3 (10:50→17:41)
[2023-02-18] MEDS: PANTOPRAZOLE SODIUM 40 MG VIAL IVPUSH SCH (10:51)
[2023-02-18] MEDS: VITAMIN B COMP W-C 1 EA TABLET (NEPHRO-VITE) PO SCH (10:51)
[2023-02-18] MEDS: NYSTATIN POWDER 100,000 UNITS/GM - 15 GM TOPICAL POWDER TP SCH ×2 (10:51→21:50)
[2023-02-18] MEDS: COLLAGENASE CLOSTRIDIUM HIST. 30 GRAMS TUBE TP SCH (10:52)
[2023-02-18] MEDS: ZINC OXIDE 20% TOPICAL OINTMENT 30 GM TUBE TP SCH ×2 (10:52→21:49)
[2023-02-18] MEDS: AMINO ACIDS/PROTEIN HYDROLYS 30 ML LIQUID.PKT PO SCH ×3 (10:54→17:41)
[2023-02-18] MEDS: TRIAMCINOLONE ACET 0.025% OINTMENT 15 GM TUBE TP SCH ×2 (10:54→21:51)
[2023-02-18] MEDS ORDERED: VASOPRESSIN 20 UNITS/ML VIAL IV ONE (11:04)
[2023-02-18] MEDS: oxyCODONE HCL 5 MG TABLET PO PRN ×2 (15:30→23:19)
[2023-02-18] MEDS: CYCLOBENZAPRINE HCL 10 MG TABLET (FP) PO SCH ×2 (15:30→18:45)
[2023-02-18] MEDS: AMITRIPTYLINE HCL 10 MG TABLET PO SCH (15:31)
[2023-02-18] MEDS: CEFEPIME 1 GM in DEXTROSE 5%-WATER 100 ML IVPB SCH (18:44)
[2023-02-18] MEDS: CHLORHEXIDINE GLUCONATE 4% CLEANSER FOR DECOLONIZATION TP SCH (21:51)
[2023-02-19] MEDS: MIDODRINE HCL 5 MG TABLET PO SCH ×3 (05:32→21:01)
[2023-02-19] MEDS: HEPARIN NA (PORCINE) 5,000 UNITS/ML 1ML VIAL SQ SCH ×3 (05:33→21:01)
[2023-02-19] MEDS: FUROSEMIDE 40 MG/4 ML INJECTABLE VIAL IVPUSH SCH ×2 (05:33→16:27)
[2023-02-19] MEDS: INSULIN (LEVEMIR) 100 UNITS/ML UNITS SQ SCH ×2 (06:21→21:01)
[2023-02-19] MEDS: INSULIN (NOVOLOG) ASPART 100 UNITS/ML 10ML VIAL SQ SCH ×3 (07:05→16:30)
[2023-02-19] MEDS: INSULIN SLIDING SCALE (NOVOLOG) 1 VIAL SQ SCH ×4 (07:08→21:05)
[2023-02-19] MEDS ORDERED: INSULIN (NOVOLOG) ASPART 100 UNITS/ML 10ML VIAL ONE (07:11)
[2023-02-19 07:16] LABS: HEMATOCRIT 24.2 % (32.4-45.2); HEMOGLOBIN 7.9 GM/dL (10.7-15.3); MCH 32.2 pg (25.7-33.7); MCHC 32.8 g/dl (32.0-36.0); MEAN CELL VOLUME 98.1 fl (80-96); MEAN PLT VOLUME 9.2 fl (7.5-11.1); PLATELET COUNT 107 10^3/uL (134-434); RBC 2.46 M/mm3 (3.60-5.2); RDW 18.9 % (11.6-15.6); WHITE BLOOD COUNT 7.5 K/mm3 (4.0-10.0)
[2023-02-19 07:37] LABS: POTASSIUM 3.8 mmol/L (3.5-5.1)
[2023-02-19 07:41] LABS: CALCIUM 7.5 mg/dL (8.5-10.1); MAGNESIUM 1.9 mg/dL (1.8-2.4)
[2023-02-19 07:42] LABS: ALBUMIN 1.7 g/dl (3.4-5.0)
[2023-02-19 07:45] LABS: CREATININE 4.7 mg/dL (0.55-1.3); PHOSPHOROUS 6.9 mg/dL (2.5-4.9)
[2023-02-19 07:46] LABS: BILIRUBIN,TOTAL 5.3 mg/dL (0.2-1); TOT PROT 4.6 g/dl (6.4-8.2)
[2023-02-19 07:56] LABS: BLOOD UREA NITROGEN 72.8 mg/dL (7-18)
[2023-02-19] MEDS: CEFEPIME 1 GM in DEXTROSE 5%-WATER 100 ML IVPB SCH (11:03)
[2023-02-19] MEDS ORDERED: CEFEPIME HCL 1 GM VIAL (RESTRICTED TO ID) ONE (11:04)
[2023-02-19] MEDS: SODIUM ZIRCONIUM CYCLOSILICATE (LOKELMA) 5 GM PACKET PO SCH (11:05)
[2023-02-19] MEDS: PANTOPRAZOLE SODIUM 40 MG VIAL IVPUSH SCH (11:05)
[2023-02-19] MEDS: AMINO ACIDS/PROTEIN HYDROLYS 30 ML LIQUID.PKT PO SCH ×3 (11:05→16:29)
[2023-02-19] MEDS: SEVELAMER CARBONATE 800 MG TAB (FP) PO SCH ×3 (11:05→16:34)
[2023-02-19] MEDS: VITAMIN B COMP W-C 1 EA TABLET (NEPHRO-VITE) PO SCH (11:05)
[2023-02-19] MEDS: CYCLOBENZAPRINE HCL 10 MG TABLET (FP) PO SCH (11:05)
[2023-02-19] MEDS: TRIAMCINOLONE ACET 0.025% OINTMENT 15 GM TUBE TP SCH ×2 (11:07→21:16)
[2023-02-19] MEDS: NYSTATIN POWDER 100,000 UNITS/GM - 15 GM TOPICAL POWDER TP SCH ×2 (11:07→21:03)
[2023-02-19] MEDS: COLLAGENASE CLOSTRIDIUM HIST. 30 GRAMS TUBE TP SCH (11:08)
[2023-02-19] MEDS: ZINC OXIDE 20% TOPICAL OINTMENT 30 GM TUBE TP SCH ×2 (11:08→21:02)
[2023-02-19] MEDS: hydrOXYzine HCL 100 MG/2 ML VIAL IM PRN ×2 (11:47→17:43)
[2023-02-19] MEDS: oxyCODONE HCL 5 MG TABLET PO PRN (13:33)
[2023-02-19] MEDS: AMITRIPTYLINE HCL 10 MG TABLET PO SCH (16:30)
[2023-02-19] MEDS: CHLORHEXIDINE GLUCONATE 4% CLEANSER FOR DECOLONIZATION TP SCH (21:01)
[2023-02-19] MEDS: VASOPRESSIN 40 UNITS/100 ML BAG IV SCH (21:15)
[2023-02-20] MEDS: VASOPRESSIN 40 UNITS/100 ML BAG IV SCH (02:32)
[2023-02-20] MEDS: MIDODRINE HCL 5 MG TABLET PO SCH ×3 (05:02→19:24)
[2023-02-20] MEDS: FUROSEMIDE 40 MG/4 ML INJECTABLE VIAL IVPUSH SCH ×2 (05:02→15:07)
[2023-02-20] MEDS: HEPARIN NA (PORCINE) 5,000 UNITS/ML 1ML VIAL SQ SCH ×3 (05:02→22:07)
[2023-02-20] MEDS: INSULIN (LEVEMIR) 100 UNITS/ML UNITS SQ SCH ×2 (05:59→22:11)
[2023-02-20] MEDS: INSULIN (NOVOLOG) ASPART 100 UNITS/ML 10ML VIAL SQ SCH ×3 (06:00→18:09)
[2023-02-20] MEDS: INSULIN SLIDING SCALE (NOVOLOG) 1 VIAL SQ SCH ×4 (06:00→22:12)
[2023-02-20] MEDS ORDERED: INSULIN (NOVOLOG) ASPART 100 UNITS/ML 10ML VIAL ONE (06:08)
[2023-02-20] MEDS: hydrOXYzine HCL 50 MG/ML VIAL IM PRN ×3 (06:17→23:17)
[2023-02-20 07:19] LABS: POTASSIUM 4.1 mmol/L (3.5-5.1)
[2023-02-20 07:28] LABS: CALCIUM 7.7 mg/dL (8.5-10.1)
[2023-02-20 07:29] LABS: ALBUMIN 1.5 g/dl (3.4-5.0); BLOOD UREA NITROGEN 87.4 mg/dL (7-18); MAGNESIUM 1.9 mg/dL (1.8-2.4)
[2023-02-20 07:32] LABS: CREATININE 5.4 mg/dL (0.55-1.3); PHOSPHOROUS 7.2 mg/dL (2.5-4.9)
[2023-02-20 07:34] LABS: BILIRUBIN,TOTAL 5.5 mg/dL (0.2-1); TOT PROT 4.7 g/dl (6.4-8.2)
[2023-02-20 07:57] LABS: HEMATOCRIT 24.6 % (32.4-45.2); HEMOGLOBIN 8.1 GM/dL (10.7-15.3); MCH 32.4 pg (25.7-33.7); MEAN CELL VOLUME 98.4 fl (80-96); MEAN PLT VOLUME 9.2 fl (7.5-11.1); PLATELET COUNT 126 10^3/uL (134-434); WHITE BLOOD COUNT 8.9 K/mm3 (4.0-10.0)
[2023-02-20] MEDS ORDERED: SODIUM CHLORIDE 250 ML IV PRN (08:19)
[2023-02-20] MEDS: SEVELAMER CARBONATE 800 MG TAB (FP) PO SCH ×3 (08:33→18:02)
[2023-02-20] MEDS: AMINO ACIDS/PROTEIN HYDROLYS 30 ML LIQUID.PKT PO SCH ×3 (08:33→18:09)
[2023-02-20] MEDS: CEFEPIME 1 GM in DEXTROSE 5%-WATER 100 ML IVPB SCH (09:26)
[2023-02-20] MEDS: VITAMIN B COMP W-C 1 EA TABLET (NEPHRO-VITE) PO SCH (09:26)
[2023-02-20] MEDS: CYCLOBENZAPRINE HCL 10 MG TABLET (FP) PO SCH (09:27)
[2023-02-20] MEDS: NOREPINEPHRINE 0.9 % NACL 8 MG/250 ML BAG IVPB SCH (09:30)
[2023-02-20] MEDS: TRIAMCINOLONE ACET 0.025% OINTMENT 15 GM TUBE TP SCH ×2 (09:30→22:07)
[2023-02-20] MEDS: COLLAGENASE CLOSTRIDIUM HIST. 30 GRAMS TUBE TP SCH (09:31)
[2023-02-20] MEDS: NYSTATIN POWDER 100,000 UNITS/GM - 15 GM TOPICAL POWDER TP SCH ×2 (09:31→22:07)
[2023-02-20] MEDS: PANTOPRAZOLE SODIUM 40 MG VIAL IVPUSH SCH (09:32)
[2023-02-20] MEDS: ALBUMIN HUMAN 25% 12.5 GM/50 ML VIAL IV SCH ×4 (09:45→12:35)
[2023-02-20] MEDS: oxyCODONE HCL 5 MG TABLET PO PRN ×2 (12:39→22:14)
[2023-02-20] MEDS: ZINC OXIDE 20% TOPICAL OINTMENT 30 GM TUBE TP SCH ×2 (15:10→22:13)
[2023-02-20] MEDS: AMITRIPTYLINE HCL 10 MG TABLET PO SCH (18:08)
[2023-02-20] MEDS: CHLORHEXIDINE GLUCONATE 4% CLEANSER FOR DECOLONIZATION TP SCH (22:07)
[2023-02-21] MEDS: VASOPRESSIN 40 UNITS/100 ML BAG IV SCH (01:15)
[2023-02-21] MEDS: FUROSEMIDE 40 MG/4 ML INJECTABLE VIAL IVPUSH SCH ×2 (06:34→13:40)
[2023-02-21] MEDS: INSULIN (LEVEMIR) 100 UNITS/ML UNITS SQ SCH ×2 (06:36→21:45)
[2023-02-21] MEDS: INSULIN (NOVOLOG) ASPART 100 UNITS/ML 10ML VIAL SQ SCH ×3 (06:37→17:32)
[2023-02-21] MEDS: INSULIN SLIDING SCALE (NOVOLOG) 1 VIAL SQ SCH ×4 (06:37→21:54)
[2023-02-21] MEDS: hydrOXYzine HCL 50 MG/ML VIAL IM PRN ×2 (06:43→17:19)
[2023-02-21 07:28] LABS: HEMATOCRIT 25.5 % (32.4-45.2); HEMOGLOBIN 8.3 GM/dL (10.7-15.3); MCH 32.3 pg (25.7-33.7); MCHC 32.7 g/dl (32.0-36.0); MEAN CELL VOLUME 98.6 fl (80-96); MEAN PLT VOLUME 9.1 fl (7.5-11.1); PLATELET COUNT 172 10^3/uL (134-434); RBC 2.58 M/mm3 (3.60-5.2); RDW 21.3 % (11.6-15.6); WHITE BLOOD COUNT 11.4 K/mm3 (4.0-10.0)
[2023-02-21 07:39] LABS: POTASSIUM 3.6 mmol/L (3.5-5.1)
[2023-02-21 07:42] LABS: CALCIUM 7.8 mg/dL (8.5-10.1)
[2023-02-21 07:43] LABS: ALBUMIN 1.7 g/dl (3.4-5.0); MAGNESIUM 1.7 mg/dL (1.8-2.4)
[2023-02-21 07:46] LABS: CREATININE 4.3 mg/dL (0.55-1.3); PHOSPHOROUS 5.4 mg/dL (2.5-4.9)
[2023-02-21 07:47] LABS: BILIRUBIN,TOTAL 6.5 mg/dL (0.2-1); TOT PROT 4.8 g/dl (6.4-8.2)
[2023-02-21 07:51] LABS: BLOOD UREA NITROGEN 52.5 mg/dL (7-18)
[2023-02-21] MEDS ORDERED: PROPOFOL 20 ML ONE (07:58)
[2023-02-21] MEDS ORDERED: MIDAZOLAM HCL 2 MG/2 ML SINGLE DOSE VIAL ONE ×3 (08:01→10:56)
[2023-02-21] MEDS: SEVELAMER CARBONATE 800 MG TAB (FP) PO SCH ×3 (08:02→17:39)
[2023-02-21] MEDS ORDERED: ROCURONIUM BROMIDE 50 MG/5 ML SYRINGE ONE ×2 (08:02→10:03)
[2023-02-21] MEDS: AMINO ACIDS/PROTEIN HYDROLYS 30 ML LIQUID.PKT PO SCH ×3 (08:02→17:18)
[2023-02-21 09:15] LABS: ARTERIAL BLOOD GAS BASE EXCESS 0.7 mmol/L (-2-2); ARTERIAL BLOOD GAS PO2 68.5 mmHg (80-100); ARTERIAL BLOOD GAS pH 7.366 (7.350-7.450)
[2023-02-21 09:17] LABS: INR 2.2 (0.83-1.09); PROTHROMBIN TIME (PATIENT) 25.3 SEC (9.7-13.0)
[2023-02-21 09:18] LABS: ACTIVATED PTT 42.3 SECONDS (25.2-36.5)
[2023-02-21] MEDS ORDERED: ETOMIDATE 20 MG/10 ML VIAL IVPUSH ONE (09:39)
[2023-02-21] MEDS ORDERED: SODIUM CHLORIDE 0.9% P/F 10 ML VIAL IJ ONE (10:14)
[2023-02-21] MEDS ORDERED: CEFEPIME HCL 1 GM VIAL (RESTRICTED TO ID) IVPB ONE (10:18)
[2023-02-21] MEDS ORDERED: BACITRACIN ZINC 15 GM TUBE TOPICAL OINTMENT ONE (10:45)
[2023-02-21] MEDS ORDERED: SUGAMMADEX SODIUM 200 MG/2 ML VIAL ONE ×2 (10:52)
[2023-02-21] MEDS: COLLAGENASE CLOSTRIDIUM HIST. 30 GRAMS TUBE TP SCH (13:03)
[2023-02-21] MEDS: ZINC OXIDE 20% TOPICAL OINTMENT 30 GM TUBE TP SCH ×2 (13:03→21:52)
[2023-02-21] MEDS: CYCLOBENZAPRINE HCL 10 MG TABLET (FP) PO SCH ×2 (13:04→13:41)
[2023-02-21] MEDS: VITAMIN B COMP W-C 1 EA TABLET (NEPHRO-VITE) PO SCH (13:05)
[2023-02-21] MEDS: MIDODRINE HCL 5 MG TABLET PO SCH ×3 (13:05→17:29)
[2023-02-21] MEDS: NYSTATIN POWDER 100,000 UNITS/GM - 15 GM TOPICAL POWDER TP SCH ×2 (13:05→21:50)
[2023-02-21] MEDS: DOCUSATE SODIUM 100 MG CAPSULE (FP) PO SCH ×2 (13:06→21:49)
[2023-02-21] MEDS: PANTOPRAZOLE SODIUM 40 MG VIAL IVPUSH SCH (13:40)
[2023-02-21] MEDS: oxyCODONE HCL 5 MG TABLET PO PRN (13:41)
[2023-02-21] MEDS: NOREPINEPHRINE 0.9 % NACL 8 MG/250 ML BAG IVPB SCH ×2 (13:55→19:34)
[2023-02-21] MEDS: TRIAMCINOLONE ACET 0.025% OINTMENT 15 GM TUBE TP SCH ×2 (17:21→21:49)
[2023-02-21] MEDS: AMITRIPTYLINE HCL 10 MG TABLET PO SCH (17:33)
[2023-02-21] MEDS ORDERED: SODIUM CHLORIDE 250 ML IV PRN (17:44)
[2023-02-21] MEDS: CEFEPIME 1 GM in DEXTROSE 5%-WATER 100 ML IVPB SCH (19:35)
[2023-02-21] MEDS: CHLORHEXIDINE GLUCONATE 4% CLEANSER FOR DECOLONIZATION TP SCH (21:49)
[2023-02-22] MEDS: VASOPRESSIN 40 UNITS/100 ML BAG IV SCH (00:31)
[2023-02-22] MEDS: oxyCODONE HCL 5 MG TABLET PO PRN (00:33)
[2023-02-22] MEDS ORDERED: HYDROmorphone HCl 2 MG/ML VIAL IVPUSH STA (01:14)
[2023-02-22 01:19] VITALS: BP 89/48; PULSE 105; RESP 20; TEMP 97.8
[2023-02-22] MEDS ORDERED: BACITRACIN ZINC 15 GM TUBE TOPICAL OINTMENT TP SCH (10:00)
== END 2023-02-22 02:49 | disposition short-term general hospital (02) | DRG 853 ==
LOC: JER 23:26 → JERBED 02-01 04:37 → JICU 02-01 04:54 → J2W 02-14 11:17 → JICU 02-15 22:35
PROVIDERS: ADMIT Internal Medicine Pulmonary Disease; ATTEND Nurse Practitioner Acute Care
PROC: 05HN33Z Insertion of Infusion Device into Left Internal Jugular Vein, Percutaneous Approach (ICD-10-PCS; principal; 2023-02-01)
PROC: B544ZZA Ultrasonography of Left Jugular Veins, Guidance (ICD-10-PCS; 2023-02-01)
PROC: 0D9P0ZZ Drainage of Rectum, Open Approach (ICD-10-PCS; 2023-02-02)
PROC: 0JB70ZZ Excision of Back Subcutaneous Tissue and Fascia, Open Approach (ICD-10-PCS; 2023-02-02)
PROC: 05HM33Z Insertion of Infusion Device into Right Internal Jugular Vein, Percutaneous Approach (ICD-10-PCS; 2023-02-02)
PROC: B543ZZA Ultrasonography of Right Jugular Veins, Guidance (ICD-10-PCS; 2023-02-02)
PROC: 0JB70ZZ Excision of Back Subcutaneous Tissue and Fascia, Open Approach (ICD-10-PCS; 2023-02-04)
PROC: 0JB70ZZ Excision of Back Subcutaneous Tissue and Fascia, Open Approach (ICD-10-PCS; 2023-02-07)
PROC: 0JBB0ZZ Excision of Perineum Subcutaneous Tissue and Fascia, Open Approach (ICD-10-PCS; 2023-02-12)
PROC: 0KBN0ZZ Excision of Right Hip Muscle, Open Approach (ICD-10-PCS; 2023-02-12)
PROC: 0D1L074 Bypass Transverse Colon to Cutaneous with Autologous Tissue Substitute, Open Approach (ICD-10-PCS; 2023-02-12 13:30)
PROC: 05HM33Z Insertion of Infusion Device into Right Internal Jugular Vein, Percutaneous Approach (ICD-10-PCS; 2023-02-15)
PROC: B543ZZA Ultrasonography of Right Jugular Veins, Guidance (ICD-10-PCS; 2023-02-15)
PROC: 30233R1 Transfusion of Nonautologous Platelets into Peripheral Vein, Percutaneous Approach (ICD-10-PCS; 2023-02-15)
PROC: 30233N1 Transfusion of Nonautologous Red Blood Cells into Peripheral Vein, Percutaneous Approach (ICD-10-PCS; 2023-02-15)
DX: A41.89 Other specified sepsis (principal); M72.6 Necrotizing fasciitis; R65.21 Severe sepsis with septic shock; N17.9 Acute kidney failure, unspecified; Z68.43 Body mass index [BMI] 50.0-59.9, adult; E87.20 Acidosis, unspecified; E11.52 Type 2 diabetes mellitus with diabetic peripheral angiopathy with gangrene; I96 Gangrene, not elsewhere classified; K61.0 Anal abscess; I13.0 Hypertensive heart and chronic kidney disease with heart failure and stage 1 through stage 4 chronic kidney disease, or unspecified chronic kidney disease; R17 Unspecified jaundice; L89.320 Pressure ulcer of left buttock, unstageable; E66.01 Morbid (severe) obesity due to excess calories; N31.9 Neuromuscular dysfunction of bladder, unspecified; M48.00 Spinal stenosis, site unspecified; R94.5 Abnormal results of liver function studies; K80.20 Calculus of gallbladder without cholecystitis without obstruction; M79.89 Other specified soft tissue disorders; I50.9 Heart failure, unspecified; N18.9 Chronic kidney disease, unspecified; E11.22 Type 2 diabetes mellitus with diabetic chronic kidney disease; Z88.1 Allergy status to other antibiotic agents; E87.5 Hyperkalemia; D72.829 Elevated white blood cell count, unspecified
CPT/HCPCS: 0241U-QW; 36415; 36430; 36600; 71045-TC-FY; 71046-TC-FY; 74176-TC; 76705-TC; 76775-TC; 80048; 80053; 80076; 81003; 82248; 82310; 82436; 82533; 82550; 82553; 82570; 82728; 82803; 82962; 82977; 83010; 83540; 83550; 83605; 83615; 83735; 83880; 83970; 84100; 84133; 84300; 84443; 84466; 84484; 85025; 85027; 85045; 85379; 85384; 85610; 85730; 86022; 86705; 86708; 86803; 86850; 86900; 86901; 86922; 87040; 87070; 87076; 87086; 87186; 87205; 87340; 87517; 87635; 88304-TC; 93005; 93010; 93306-TC; 93970-TC; 94760; 97161-GP; 99285-25; E0194; G0480; J1644; J3490; P9017; P9034; P9038; P9047; P9058